=== PATIENT | female | born 1980 | race Two or more races ===

== ENCOUNTER 2020-01-09 15:40 | Outpatient (REF) | payer MEDICAID, OTHER, SELFPAY ==
--- NOTE | 2020-01-09 | XR_ITS ---
EXAMINATION: XR LUMBOSACRAL SPINE WITH OBLIQUES CLINICAL INFORMATION: Low back x1 month COMPARISON: None TECHNIQUE: AP, both oblique, and lateral views of the lumbar spine. Lateral view of the lumbosacral junction. FINDINGS: There is abnormal segmentation of lumbar vertebrae with 6 nonbearing lumbar vertebrae are seen. There is maintained lumbar lordosis. There is minimal dextroscoliosis mid dorsal spine. The vertebral heights, alignment and disc heights are maintained normal. No visible acute fracture, dislocation or lytic process seen. The soft tissues are normal. XR/XR lumbar spine 4V min IMPRESSION: 6 nonbearing lumbar vertebrae. Mild dextroscoliosis mid dorsal spine. No acute fracture, dislocation or lytic process.
== END 2020-01-09 15:41 | disposition home or self-care (01) ==
LOC: HO.XRAY 15:40
PROVIDERS: Visit Provider Nurse Practitioner Family
DX: M54.42 Lumbago with sciatica, left side (principal)
CPT/HCPCS: 72110

== ENCOUNTER 2020-01-13 08:58 | Outpatient (REF) | payer MEDICAID, OTHER, SELFPAY ==
[2020-01-13 12:02] LABS: Hematocrit 40.7 % (37-47); Hemoglobin 13.5 g/dl (12.0-16.0); Mean Corpuscular HGB Conc 33.2 g/dl (31.0-35.0); Mean Corpuscular Hemoglobin 32.2 pg (27.0-33.0); Mean Corpuscular Volume 97.1 fL (80-98); Mean Platelet Volume 9.2 fL (9.4-12.3); Platelet Count 296 X10*3/uL (160-400); Red Blood Count 4.19 X10*6/uL (4.20-5.50); Red Cell Distribution Width 12.5 % (11.0-16.0); White Blood Count 6.2 X10*3/uL (4.8-10.8)
[2020-01-14 09:21] LABS: BV Int Neg Control Negative (Negative); BV Int Pos Control Positive (Positive)
[2020-01-17 16:13] LABS: HPV mRNA E6/E7 Not Detected (Not Detected)
[2020-01-17 18:13] LABS: CT PCR NOT DETECTED (Not Detect.); NG PCR NOT DETECTED (Not Detect.)
== END 2020-01-13 08:59 | disposition home or self-care (01) ==
LOC: HO.LAB 08:58
PROVIDERS: Visit Provider Advanced Practice Midwife
DX: Z01.419 Encounter for gynecological examination (general) (routine) without abnormal findings (principal); N85.2 Hypertrophy of uterus; N89.8 Other specified noninflammatory disorders of vagina; Z86.018 Personal history of other benign neoplasm; Z11.8 Encounter for screening for other infectious and parasitic diseases; Z11.3 Encounter for screening for infections with a predominantly sexual mode of transmission; Z87.59 Personal history of other complications of pregnancy, childbirth and the puerperium
CPT/HCPCS: 36415; 81003; 81025; 85027; 87480; 87491; 87510; 87591; 87624; 87660; 88142; 99212

== ENCOUNTER 2020-01-14 09:15 | Outpatient (REF) | payer MEDICAID, SELFPAY | END 2020-01-14 09:16 | disposition home or self-care (01) | LOC: HO.LAB 09:15 | PROVIDERS: Visit Provider Advanced Practice Midwife | DX: Z13.89 Encounter for screening for other disorder (principal) ==

== ENCOUNTER 2020-05-12 16:38 | Outpatient (REF) | payer MEDICAID, OTHER, SELFPAY ==
--- NOTE | ~2020-05-12 | XR_ITS ---
EXAMINATION: XR KNEE, RIGHT CLINICAL INFORMATION: Right knee pain COMPARISON: Radiographs right knee 03/27/2018 TECHNIQUE: Right knee is imaged in 5 views. FINDINGS: There is no fracture, dislocation, destructive process, or suprapatellar effusion. Hoffa's fat pad appears normal. The medial and lateral knee joint compartments show no interval narrowing or subchondral sclerosis, erosive change, or chondrocalcinosis. Again, there is borderline marginal osteophyte medial femoral condyle. Axial view patella are again shows lateral patellar spur with some borderline lateral patellofemoral joint narrowing. No erosive change or chondrocalcinosis. No lateralization patella. XR/XR knee RT 4V IMPRESSION: 1. Borderline lateral patellofemoral joint narrowing with small lateral patellar spur. 2. No suprapatellar effusion. No erosive changes or chondrocalcinosis.
== END 2020-05-12 16:39 | disposition home or self-care (01) ==
LOC: HO.XRAY 16:38
PROVIDERS: PCP Family Medicine; Visit Provider Emergency Medicine
DX: M25.561 Pain in right knee (principal); M77.9 Enthesopathy, unspecified
CPT/HCPCS: 73564

== ENCOUNTER 2020-05-26 17:30 | Outpatient (REF) | payer MEDICAID, OTHER, SELFPAY ==
--- NOTE | ~2020-05-26 | XR_ITS ---
EXAMINATION: XR CHEST CLINICAL INFORMATION: Chest pain COMPARISON: None TECHNIQUE: 2 views of the chest were obtained. FINDINGS: No significant abnormality is noted involving the heart, lungs, mediastinum, bony thorax or soft tissues. XR/XR chest 2V IMPRESSION: No acute disease.
== END 2020-05-26 17:31 | disposition home or self-care (01) ==
LOC: HO.XRAY 17:30
PROVIDERS: PCP Family Medicine; Visit Provider Family Medicine
DX: R07.9 Chest pain, unspecified (principal)
CPT/HCPCS: 71046

== ENCOUNTER 2021-05-13 16:20 | Outpatient (REF) | payer MEDICAID, OTHER, SELFPAY ==
--- NOTE | ~2021-05-13 | MR_ITS ---
MR BRAIN WITHOUT AND WITH IV CONTRAST CLINICAL INFORMATION: Poliomyelitis is a child now with intermittent episodes. Patient describes left arm weakness, lower extremity pain, and weakness. COMPARISON: None available. TECHNIQUE: Multiplanar, multisequence MRI of the brain was obtained before and after the intravenous administration of 8 mL of Gadavist. FINDINGS: There are mild nonspecific T2 signal changes scattered throughout the supratentorial white matter. No pathologic enhancement intracranially. There is no hydrocephalus, extra-axial surface collection, or herniation. The major flow voids at the skull base are preserved. There is no acute infarct on diffusion-weighted imaging. There is no intracranial hemorrhage on the gradient recalled echo acquisition. The midline structures are normal. The cerebellar tonsils are normally positioned. The cerebellum and brainstem are normal. The craniocervical junction is normal. Osseous marrow signal intensity is homogenous. The visualized soft tissues are unremarkable. MR/MR head/brain wo/w con IMPRESSION: There are mild nonspecific T2 signal changes scattered throughout the supratentorial white matter. No pathologic enhancement intracranially.
== END 2021-05-13 16:21 | disposition home or self-care (01) ==
LOC: HO.MRI 16:20
PROVIDERS: Visit Provider Nurse Practitioner Family
DX: M62.81 Muscle weakness (generalized) (principal)
CPT/HCPCS: 70553; A9585

== ENCOUNTER 2021-07-28 10:56 | Outpatient (REF) | payer MEDICAID, SELFPAY ==
--- NOTE | ~2021-07-28 | MM_ITS ---
EXAMINATION: MM DIAGNOSTIC DIGITAL BREAST TOMOSYNTHESIS, BILATERAL US DIAGNOSTIC ULTRASOUND BREAST, LEFT CLINICAL INFORMATION: Bilateral chronic breast pain. No palpable 1 cm nodule near left nipple on clinical exam. The lifetime risk of breast cancer based on the Tyrer-Cuzick Model is 17%. COMPARISON: Mammography: 09/04/2018, 08/28/2018, ultrasound left breast 09/04/2018. TECHNIQUE: Digital breast tomosynthesis is performed in both the craniocaudal and mediolateral oblique views along with computer-aided detection (CAD). Synthesized 2D images are generated from the tomosynthesis. Additional left spot CC view is performed. Ultrasound left breast is targeted to the periareolar region. Grayscale imaging and color Doppler are performed without and with harmonics. FINDINGS: The breasts are heterogeneously dense, which may obscure small masses (ACR BI-RADS breast composition Category c). Left breast has new smooth macrolobulated nodule 3:00 subareolar position measuring 1.1 x 0.8 x 0.8 cm. The remainder of the breasts show no significant changes from prior studies. Asymmetric density central left breast on initial CC view resolves on additional spot projection. There is no architectural abnormality. No abnormal calcifications. The axilla and skin contours are unremarkable. No skin thickening or coarsening of the Don's ligaments. Ultrasound left breast demonstrates a smooth hypoechoic mass residing just deep to the skin with some radiating hyperechoic internal septations 3:00 retroareolar region measuring 1.2 x 0.6 x 0.9 cm. There is prominent peripheral and internal color flow noted on Doppler. Some scattered tiny cysts are present in the anterior breasts. No architectural abnormality. No skin thickening or edema tracking in soft tissue planes. The mass corresponds to the new lesion on mammography. Results are discussed with the patient at time of visit, using an trim and burr operator. Ultrasound-guided biopsy of the retroareolar left breast mass is recommended. MM/MM tomosynthesis diagnostic BI IMPRESSION: Left: -New smooth hypoechoic mass 3:00 subareolar left breast measuring 1.2 cm. Right: -No mammographic evidence of malignancy. ASSESSMENT: BI-RADS 4: Suspicious RECOMMENDATION: Ultrasound-guided core biopsy left breast mass. This patient's information was entered into a reminder system with a target due date for their next mammogram.
== END 2021-07-28 10:57 | disposition home or self-care (01) ==
LOC: HO.MAMMO 10:56
PROVIDERS: PCP Family Medicine; Visit Provider Family Medicine
DX: N63.42 Unspecified lump in left breast, subareolar (principal)
CPT/HCPCS: 76642; 77062; 77066

== ENCOUNTER 2021-07-30 10:06 | Outpatient (REF) | payer MEDICAID, SELFPAY ==
--- NOTE | ~2021-07-30 | MM_ITS ---
PROCEDURE: US GUIDED BREAST BIOPSY, LEFT CLINICAL INFORMATION: Retroareolar solid mass with internal vascularity 2:00 position COMPARISON: July 28, 2021 and September 04, 2018 PROCEDURAL DETAILS: The details of the procedure, as well as the risks, benefits, and alternatives to the procedure were explained to the patient in detail and all of her questions were answered, after which written informed consent was obtained. Site and side were confirmed. Prior to the procedure, sonography revealed a subcutaneous hypoechoic lobulated lesion with increased vascularity internally which appears to lie within breast parenchyma. This measures approximately 1.2 x 0.5 cm in size.. A time-out was performed, the lesion intended for biopsy was targeted, and the skin of the left breast was then prepped and draped in the usual sterile fashion. Using sonographic guidance, sterile technique, and 1% lidocaine without epinephrine for local anesthesia, multiple automated core biopsies were obtained through the targeted area with a 14G spring loaded Achieve core biopsy device. There was real-time confirmation of appropriate needle passage. Sampling was documented. At the completion of tissue sampling, a single butterfly-shaped metallic clip was deposited at the biopsy site. There was no evidence of immediate complication. SPECIMEN: An appropriate sample was obtained. DIGITAL POST-PROCEDURE MAMMOGRAPHY: Breast density: The tissue is heterogeneously dense which may obscure small masses. BI-RADS version 5, category C. There are no new mammographic findings demonstrated. The postprocedure 2-view direct digital mammogram reveals satisfactory positioning of the biopsy clip. The patient tolerated the procedure well and, after assuring adequate hemostasis, was discharged in good condition after reviewing postbiopsy breast care instructions. Final pathology results are pending. MM/MM diagnostic mammo unilat LT IMPRESSION: 1. No immediate complication from ultrasound-guided percutaneous biopsy left breast. 2. Ultrasound was used to localize and guide marker clip placement. 3. The 2-view direct digital postprocedure mammogram reveals satisfactory positioning of the biopsy clip. 4. Final pathology results are pending. A separate report with final recommendations will be issued once these results are made available.
[2021-07-30] MEDS: Lidocaine HCl 1 % 20 ML VIAL 10 ML SUBCUT (11:42)
== END 2021-07-30 10:07 | disposition home or self-care (01) ==
LOC: HO.MAMMO 10:06
PROVIDERS: PCP Nurse Practitioner Family; Visit Provider Surgery
DX: N63.21 Unspecified lump in the left breast, upper outer quadrant (principal); R92.8 Other abnormal and inconclusive findings on diagnostic imaging of breast
CPT/HCPCS: 19083; 77062; 77065; 88305; 88341; 88342; 99202

== ENCOUNTER 2022-01-19 15:02 | Outpatient (REF) | payer MEDICAID, SELFPAY ==
--- NOTE | ~2022-01-19 | XR_ITS ---
EXAMINATION: XR HAND, LEFT CLINICAL INFORMATION: Hand pain. COMPARISON: None TECHNIQUE: PA, lateral, and oblique views of the left hand. FINDINGS: The bones and soft tissues are normal. No fracture. Alignment is anatomic. Joint spaces are maintained. No erosions or soft tissue calcifications. XR/XR hand LT min 3V IMPRESSION: Unremarkable left hand.
== END 2022-01-19 15:03 | disposition home or self-care (01) ==
LOC: HO.XRAY 15:02
PROVIDERS: PCP Nurse Practitioner; Visit Provider Nurse Practitioner
DX: M79.642 Pain in left hand (principal)
CPT/HCPCS: 73130

== ENCOUNTER 2022-01-20 10:09 | Outpatient (REF) | payer MEDICAID, SELFPAY ==
--- NOTE | ~2022-01-20 | XR_ITS ---
EXAMINATION: XR RIGHT HAND AND RIGHT KNEE CLINICAL INFORMATION: Pain. COMPARISON: None. TECHNIQUE: 3 views of the right hand and 4 views of the right knee. FINDINGS: 3 views of the right hand do not demonstrate any evidence of acute fracture or dislocation. Joint spaces are maintained. No erosive changes are evident. No radiopaque foreign body. Views of the right knee do not demonstrate any evidence of acute fracture or dislocation. Right knee joint spaces are maintained. There is minimal marginal spurring seen about the medial joint space compartment. There is mild spurring about the undersurface of the patella, more prominent laterally. XR/XR knee RT 4V IMPRESSION: No significant right hand abnormality appreciated. Mild patellofemoral joint degenerative change. No fracture or effusion.
--- NOTE | ~2022-01-20 | XR_ITS ---
EXAMINATION: XR RIGHT HAND AND RIGHT KNEE CLINICAL INFORMATION: Pain. COMPARISON: None. TECHNIQUE: 3 views of the right hand and 4 views of the right knee. FINDINGS: 3 views of the right hand do not demonstrate any evidence of acute fracture or dislocation. Joint spaces are maintained. No erosive changes are evident. No radiopaque foreign body. Views of the right knee do not demonstrate any evidence of acute fracture or dislocation. Right knee joint spaces are maintained. There is minimal marginal spurring seen about the medial joint space compartment. There is mild spurring about the undersurface of the patella, more prominent laterally. XR/XR hand RT min 3V IMPRESSION: No significant right hand abnormality appreciated. Mild patellofemoral joint degenerative change. No fracture or effusion.
== END 2022-01-20 10:10 | disposition home or self-care (01) ==
LOC: HO.XRAY 10:09
PROVIDERS: PCP Nurse Practitioner; Visit Provider Nurse Practitioner
DX: M25.561 Pain in right knee (principal); M79.641 Pain in right hand
CPT/HCPCS: 73130; 73564

== ENCOUNTER 2022-08-10 11:26 | Outpatient (REF) | payer MEDICAID, SELFPAY ==
--- NOTE | ~2022-08-10 | XR_ITS ---
EXAMINATION: XR FOOT, RIGHT CLINICAL INFORMATION: Sole of foot pain of greater than one year's duration. COMPARISON: None available. TECHNIQUE: AP, lateral, and oblique views of the right foot. FINDINGS: Bony alignment and mineralization are normal. No fracture, dislocation or right joint effusion is seen. Boehler's angle is normal. There are small posterior and minimal plantar calcaneal spurs. No focal soft tissue swelling, gas or foreign body is seen. XR/XR foot RT min 3V IMPRESSION: 1. No fracture, dislocation or right ankle joint effusion is seen. 2. There are calcaneal spurs. EXAMINATION: XR FOOT, LEFT CLINICAL INFORMATION: Sole of foot pain of greater than one year's duration. COMPARISON: Radiographs dated 11/20/2017. TECHNIQUE: AP, lateral, and oblique views of the left foot. FINDINGS: Bony alignment and mineralization are normal. No fracture, dislocation or left ankle joint effusion is seen. Boehler's angle is normal. There are small to moderate posterior and plantar calcaneal spurs. There are degenerative changes of the dorsal midfoot. No focal soft tissue swelling, gas or foreign body is seen. IMPRESSION: 1. No fracture, dislocation or left ankle joint effusion is seen. 2. There are calcaneal spurs.
--- NOTE | ~2022-08-10 | XR_ITS ---
EXAMINATION: XR FOOT, RIGHT CLINICAL INFORMATION: Sole of foot pain of greater than one year's duration. COMPARISON: None available. TECHNIQUE: AP, lateral, and oblique views of the right foot. FINDINGS: Bony alignment and mineralization are normal. No fracture, dislocation or right joint effusion is seen. Boehler's angle is normal. There are small posterior and minimal plantar calcaneal spurs. No focal soft tissue swelling, gas or foreign body is seen. XR/XR foot LT min 3V IMPRESSION: 1. No fracture, dislocation or right ankle joint effusion is seen. 2. There are calcaneal spurs. EXAMINATION: XR FOOT, LEFT CLINICAL INFORMATION: Sole of foot pain of greater than one year's duration. COMPARISON: Radiographs dated 11/20/2017. TECHNIQUE: AP, lateral, and oblique views of the left foot. FINDINGS: Bony alignment and mineralization are normal. No fracture, dislocation or left ankle joint effusion is seen. Boehler's angle is normal. There are small to moderate posterior and plantar calcaneal spurs. There are degenerative changes of the dorsal midfoot. No focal soft tissue swelling, gas or foreign body is seen. IMPRESSION: 1. No fracture, dislocation or left ankle joint effusion is seen. 2. There are calcaneal spurs.
== END 2022-08-10 11:27 | disposition home or self-care (01) ==
LOC: HO.HHCX 11:26
PROVIDERS: Visit Provider Registered Nurse
DX: M72.2 Plantar fascial fibromatosis (principal)
CPT/HCPCS: 73630

== ENCOUNTER 2022-08-16 09:21 | Outpatient (REF) | payer MEDICAID, SELFPAY ==
[2022-08-16 13:06] LABS: Alanine Aminotransferase 16 U/L (0-31); Albumin Level 3.8 g/dL (3.5-5.0); Alkaline Phosphatase 52 U/L (39-117); Anion Gap 13 (12-20); Aspartate Amino Transferase 14 U/L (5-31); Bilirubin Total 0.3 mg/dL (0.0-1.0); Blood Urea Nitrogen 12 mg/dL (9-16); Calcium 9.1 mg/dL (8.4-10.2); Carbon Dioxide 21 mmol/L (22-29); Chloride 108 mmol/L (96-108); Estimated Glomerular Filt Rate > 60; Glucose Random 80 mg/dL (60-115); Potassium 3.7 mmol/L (3.3-5.1); Sodium 138 mmol/L (135-145); Total Protein 7.3 g/dL (6.5-8.0)
[2022-08-16 13:24] LABS: TSH reflex Free T4 1.25 uIU/mL (0.32-4.0)
[2022-08-16 13:31] LABS: Folate 13.9 ng/mL (> or = 4.0); Vitamin B12 693 pg/mL (200-900)
[2022-08-17 02:25] LABS: Syphilis Screen Nonreactive (Nonreactive)
== END 2022-08-16 09:22 | disposition home or self-care (01) ==
LOC: HO.LAB 09:21
PROVIDERS: PCP Registered Nurse; Visit Provider Registered Nurse
DX: R41.3 Other amnesia (principal)
CPT/HCPCS: 36415; 80053; 82607; 82746; 84443; 86592; 86780

== ENCOUNTER 2022-08-17 14:50 | Outpatient (REF) | payer MEDICAID, SELFPAY ==
--- NOTE | ~2022-08-17 | MM_ITS ---
EXAMINATION: MM SCREENING DIGITAL BREAST TOMOSYNTHESIS, BILATERAL CLINICAL INFORMATION: Screening. Asymptomatic. The lifetime risk of breast cancer based on the Tyrer-Cuzick Model is 17%. COMPARISON: Mammography: This study is compared with prior exams dating back to 2019. TECHNIQUE: Digital breast tomosynthesis is performed in both the craniocaudal and mediolateral oblique views along with computer-aided detection (CAD). Synthesized 2D images are generated from the tomosynthesis. FINDINGS: The breasts are heterogeneously dense, which may obscure small masses (ACR BI-RADS breast composition Category c). There are no significant masses, abnormal calcifications, or other abnormalities. MM/MM tomosynthesis screening BI IMPRESSION: No mammographic evidence of malignancy. ASSESSMENT: BI-RADS BI-RADS 1 - Negative RECOMMENDATION: Routine annual mammography screening. 1 year F/U This examination should not preclude the clinical evaluation of a suspicious palpable abnormality. This patient's information was entered into a reminder system with a target due date for their next mammogram.
== END 2022-08-17 14:51 | disposition home or self-care (01) ==
LOC: HO.MAMMO 14:50
PROVIDERS: PCP Registered Nurse; Visit Provider Registered Nurse
DX: Z12.31 Encounter for screening mammogram for malignant neoplasm of breast (principal)
CPT/HCPCS: 77063; 77067

== ENCOUNTER → 2022-08-17 15:00 | Outpatient (BNV) | payer MEDICAID, SELFPAY | PROVIDERS: PCP Registered Nurse; Visit Provider Radiology Diagnostic Radiology | DX: Z12.31 Encounter for screening mammogram for malignant neoplasm of breast (principal) | CPT/HCPCS: 77063; 77067 ==

== ENCOUNTER 2023-04-07 09:17 | Outpatient (REF) | payer MEDICAID, SELFPAY ==
[2023-04-07 11:23] LABS: MANUAL DIFF FLAG NO
[2023-04-07 11:42] LABS: Basophils Percent Auto 0.9 % (0-2); Eosinophils Absolute Auto 0.1 X10*3/uL (0.0-0.4); Eosinophils Percent Auto 2.2 % (0-4); Hematocrit 39.2 % (37.0-47.0); Hemoglobin 13.1 g/dl (12.0-16.0); Imm Gran Abs Auto 0.01 X10*3/uL (0.00-0.03); Imm Gran Pct Auto 0.2 % (0.0-0.4); Lymphocytes Absolute Auto 1.5 X10*3/uL (1.2-4.9); Mean Corpuscular HGB Conc 33.4 g/dl (31.0-35.0); Mean Corpuscular Hemoglobin 32.3 pg (27.0-33.0); Mean Corpuscular Volume 96.8 fL (80.0-98.0); Mean Platelet Volume 9.9 fL (9.4-12.3); Monocytes Absolute Auto 0.4 X10*3/uL (0.1-1.2); Monocytes Percent Auto 8.7 % (2-11); Neutrophils Absolute Auto 2.5 x10*3/uL (2.0-8.3); Platelet Count 282 X10*3/uL (160-400); Red Blood Count 4.05 X10*6/uL (4.20-5.50); Red Cell Distribution Width 12.3 % (11.0-16.0); White Blood Count 4.5 X10*3/uL (4.8-10.8)
[2023-04-07 11:47] LABS: INTERNATIONAL NORM RATIO 0.9 (0.9-1.1); Prothrombin Time 11.3 SEC (11.1-13.3)
[2023-04-07 11:49] LABS: Partial Thromboplastin Time 25.9 SEC (26.0-36.8)
[2023-04-07 11:54] LABS: Alkaline Phosphatase 62 U/L (39-117); Magnesium 1.9 mg/dL (1.6-2.6)
== END 2023-04-07 09:18 | disposition home or self-care (01) ==
LOC: HO.HHCL 09:17
PROVIDERS: Visit Provider General Practice
DX: M89.9 Disorder of bone, unspecified (principal)
CPT/HCPCS: 36415; 83735; 84075; 85025; 85610; 85730

== ENCOUNTER 2023-07-12 10:09 | Outpatient (REF) | payer MEDICAID, SELFPAY ==
[2023-07-12 11:48] LABS: MANUAL DIFF FLAG NO
[2023-07-12 11:58] LABS: Basophils Percent Auto 0.6 % (0-2); Eosinophils Absolute Auto 0.1 X10*3/uL (0.0-0.4); Eosinophils Percent Auto 2.6 % (0-4); Hematocrit 37.9 % (37.0-47.0); Hemoglobin 12.7 g/dl (12.0-16.0); Lymphocytes Absolute Auto 1.6 X10*3/uL (1.2-4.9); Lymphocytes Percent Auto 29.6 % (20-40); Mean Corpuscular HGB Conc 33.5 g/dl (31.0-35.0); Mean Corpuscular Hemoglobin 32.6 pg (27.0-33.0); Mean Corpuscular Volume 97.4 fL (80.0-98.0); Mean Platelet Volume 9.8 fL (9.4-12.3); Monocytes Absolute Auto 0.5 X10*3/uL (0.1-1.2); Monocytes Percent Auto 9.4 % (2-11); Neutrophils Absolute Auto 3.1 x10*3/uL (2.0-8.3); Neutrophils Percent Auto 57.8 % (45-73); Platelet Count 254 X10*3/uL (160-400); Red Blood Count 3.89 X10*6/uL (4.20-5.50); White Blood Count 5.3 X10*3/uL (4.8-10.8)
[2023-07-12 12:27] LABS: Anion Gap 12 (12-20); Blood Urea Nitrogen 12 mg/dL (9-16); C Reactive Protein 0.27 mg/dL (< or = 0.50); Calcium 9.1 mg/dL (8.4-10.2); Carbon Dioxide 25 mmol/L (22-29); Chloride 107 mmol/L (96-108); Estimated Glomerular Filt Rate > 60; Glucose Random 87 mg/dL (60-115); Sodium 140 mmol/L (135-145)
[2023-07-12 12:40] LABS: Erythrocyte Sedimentation Rate 10 MM/HR (0-20)
== END 2023-07-12 10:10 | disposition home or self-care (01) ==
LOC: HO.HHCL 10:09
PROVIDERS: Visit Provider Family Medicine
DX: R53.81 Other malaise (principal); R68.89 Other general symptoms and signs
CPT/HCPCS: 36415; 80048; 85025; 85652; 86140

== ENCOUNTER 2023-08-07 18:39 | Outpatient (REF) | payer MEDICAID, SELFPAY ==
[2023-08-08 11:03] LABS: Bacterial Vaginosis PCR NEGATIVE (Negative); Candida Group PCR NOT DETECTED (Not Detect); Candida glab krusei PCR NOT DETECTED (Not Detect); Trichomonas vaginalis PCR NOT DETECTED (Not Detect)
[2023-08-08 11:52] LABS: CT PCR NOT DETECTED (Not Detect.); NG PCR NOT DETECTED (Not Detect.)
== END 2023-08-07 18:40 | disposition home or self-care (01) ==
LOC: HO.HHCLNP 18:39
PROVIDERS: Visit Provider General Practice
DX: Z12.4 Encounter for screening for malignant neoplasm of cervix (principal)
CPT/HCPCS: 0352U; 87491; 87591; 87625; 88175

== ENCOUNTER 2023-08-23 14:44 | Outpatient (REF) | payer MEDICAID, SELFPAY | END 2023-08-23 14:45 | disposition home or self-care (01) | LOC: HO.MAMMO 14:44 | PROVIDERS: PCP General Practice; Visit Provider General Practice | DX: Z12.31 Encounter for screening mammogram for malignant neoplasm of breast (principal) | CPT/HCPCS: 77063; 77067 ==

== ENCOUNTER → 2023-08-23 15:00 | Outpatient (BNV) | payer MEDICAID, SELFPAY | PROVIDERS: PCP General Practice; Visit Provider Radiology Diagnostic Radiology | DX: Z12.31 Encounter for screening mammogram for malignant neoplasm of breast (principal) | CPT/HCPCS: 77063; 77067 ==

== ENCOUNTER 2023-08-25 11:37 | Outpatient (REF) | payer MEDICAID, SELFPAY ==
[2023-08-25 15:21] LABS: Estimated Average Glucose 103 mg/dL; Hemoglobin A1c % 5.2 % (<6.0)
[2023-08-25 21:35] LABS: Cholesterol 141 mg/dL (<200); HDL Cholesterol 53 mg/dL (>40); LDL Cholesterol Calculated 78 mg/dL (<100); Triglycerides 51 mg/dL (<150)
[2023-08-26 03:42] LABS: HIV AB/AG Nonreactive (Nonreactive); HIV Num 1 0.05 S/CO (0.00-0.99); ~HepC Num1 0.33 S/CO (0.00-0.79); ~Hepatitis C Antibody Nonreactive (Nonreactive)
== END 2023-08-25 11:38 | disposition home or self-care (01) ==
LOC: HO.HHCL 11:37
PROVIDERS: Visit Provider General Practice
DX: Z00.01 Encounter for general adult medical examination with abnormal findings (principal)
CPT/HCPCS: 36415; 80061; 83036; 86803; 87389

== ENCOUNTER 2023-09-18 08:49 | Outpatient (AMB) | payer MEDICAID, SELFPAY ==
--- NOTE | 2023-09-18 08:59 | MHC.OFFVIS ---
Vital Signs 09/18/23 09:04 Height 5 ft Weight 178 lb BMI 34.8 BP 120/70 Intake Visit Reasons: Chronic Pelvic pain/referral Principal Accounts Clerk Required: Yes Principal Accounts Clerk Language: Insurance Processor Services: Principal Accounts Clerk Present (in person) Principal Accounts Clerk Name: Maris THORNTON Information Interpreted: non-clinical & clinical Gyroscopic Engineering Technician: Gyroscopic Engineering Technician Present (Maris THORNTON) Accompanied by: Self / Same As Patient Allergies No Known Allergies Allergy (Verified 09/18/23 09:06) Is last menstrual period known: Yes HPI Comments Details: The patient is presenting c/o inability to conceive over the last two years in spite of frequent adequate intercourse. Her periods are regular and non-painful, no other complaints. FOR[facility]LY [facility] Medical History Arthritis, rheumatoid Polio Surgical History History of surgery on lower extremity Family History Mother Colon cancer Father Prostate cancer Mother Hyperlipemia Father Diabetes Maternal Aunt Breast cancer Social History Household Members: Spouse Household Members Other:: son Housing: Apartment Alcohol intake: current Alcohol intake frequency: holidays/special occasions only Patient Tobacco Use Status: Never used Tobacco Current occupational status: unemployed Sexually active: Yes Gender identity: Female Female Reproductive History Menstrual Age of Menarche: 9 Date of last pap smear: 02/04/20 Review of Systems Const All systems reviewed & are unremarkable except as noted in HPI and below Reports as per HPI and Reports no additional complaints GI Reports no additional complaints Reports no additional complaints Physical Exam Vital Signs: Last Vital Signs BP 120/70 09/18/23 09:04 BMI result Body Mass Index 34.8 Results AMB Test Urine AMB Test Urine Negative Last Edit by Maris Wilkerson CMA on 09/18/23 09:14 AMB Urinalysis Dipstick UR Leukocytes Negative Last Edit by Maris Wilkerson CMA on 09/18/23 09:16 UR Nitrite Negative Last Edit by Maris Wilkerson CMA on 09/18/23 09:16 UR Urobilinogen Normal Last Edit by Maris Wilkerson CMA on 09/18/23 09:16 UR Protein Trace Last Edit by Maris Wilkerson CMA on 09/18/23 09:16 UR Ph 6.0 Last Edit by Maris Wilkerson CMA on 09/18/23 09:16 UR Blood Negative Last Edit by Maris Wilkerson CMA on 09/18/23 09:16 UR Specific Ledbetter 1.025 Last Edit by Maris Wilkerson CMA on 09/18/23 09:16 UR Ketone Negative Last Edit by Maris Wilkerson CMA on 09/18/23 09:16 UR Bilirubin Negative Last Edit by Maris Wilkerson CMA on 09/18/23 09:16 UR Glucose Negative Last Edit by Maris Wilkerson CMA on 09/18/23 09:16 Results Reviewed Results Reviewed: Laboratory Last Values Urine pH (Clinic) 6.0 09/18/23 09:13 Specific Ledbetter (Clinic) 1.025 09/18/23 09:13 Ur Protein (Clinic) Trace 09/18/23 09:13 Ur Ketones (Clinic) Negative 09/18/23 09:13 Urine Blood (Clinic) Negative 09/18/23 09:13 Urine Nitrite Negative 09/18/23 09:13 Urine Bilirubin (Clinic) Negative 09/18/23 09:13 Urobilinogen (Clinic) Normal 09/18/23 09:13 Leukocyte Esterase (Clinic) Negative 09/18/23 09:13 Urine Glucose (Clinic) Negative 09/18/23 09:13 Tst Clinic Negative 09/18/23 09:13 Assessment & Plan Assessment & Plan (1) Infertility, female: Code(s): N97.9 - Female infertility, unspecified Category: Medical Plan: Discussed with the patient different cause of infertility female/male factors, chance of different age group. will refer to [facility]/infertility. All questions answered, the patient verbalized understanding. Instructed the patient to call our office back in case a referral appointment is not scheduled, missed or canceled so that we will assist on rescheduling another appointment, the patient verbalized understanding agreed with the plan. Orders: Orders AMB Urinalysis Dipstick Today R10.2 - Pelvic and perineal pain AMB HCG Urine Test Today Z32.02 - Encounter for test, result negative Referrals Infertility Reproductive Referral (female) N97.9 - Female infertility, unspecified Coding Level of Care Code New Pt Level 3 (11150) Diagnoses Infertility, female N97.9
[2023-09-18 09:04] VITALS: BP 120/70; BMI 34.8
== END 2023-09-18 09:37 | disposition home or self-care (01) ==
LOC: HO.HWS 08:49
PROVIDERS: PCP General Practice; Visit Provider Obstetrics & Gynecology
DX: N97.9 Female infertility, unspecified (principal); Z32.02 Encounter for pregnancy test, result negative; R10.2 Pelvic and perineal pain
CPT/HCPCS: 99203

== ENCOUNTER → 2023-09-18 08:49 | Outpatient (BNVA) | payer MEDICAID, SELFPAY | PROVIDERS: PCP General Practice; Visit Provider Obstetrics & Gynecology | DX: N97.9 Female infertility, unspecified (principal) | CPT/HCPCS: 81002; 81025; 99202 ==

== ENCOUNTER 2023-09-20 10:03 | Outpatient (REF) | payer MEDICAID, SELFPAY ==
--- NOTE | ~2023-09-20 | XR_ITS ---
EXAMINATION: XR LUMBOSACRAL SPINE CLINICAL INFORMATION: Low back pain. COMPARISON: 01/09/2020 TECHNIQUE: Three views of the lumbosacral spine. FINDINGS: Transitional lumbosacral anatomy. There is rotatory dextroscoliosis of the lumbar spine. Normal sagittal alignment. Vertebral body heights are maintained. There is moderate intervertebral disc space narrowing at L3-L4 with marginal osteophytes. Sacroiliac joints are intact. XR/XR lumbar spine 2-3V IMPRESSION: Moderate degenerative disc disease L3-L4.
== END 2023-09-20 10:04 | disposition home or self-care (01) ==
LOC: HO.HHCX 10:03
PROVIDERS: Visit Provider Family Medicine
DX: M54.50 Low back pain, unspecified (principal)
CPT/HCPCS: 72100

== ENCOUNTER 2024-04-03 11:31 | Outpatient (REF) | payer MEDICAID, SELFPAY ==
--- NOTE | ~2024-04-03 | XR_ITS ---
EXAMINATION: XR SHOULDER 2 OR MORE VIEWS RIGHT HISTORY: right anterior shoulder pain COMPARISON: There are no prior studies available for comparison. FINDINGS: Four views of the right shoulder are submitted. Osseous mineralization is normal. There is no fracture or dislocation. The glenohumeral and acromioclavicular joint spaces are preserved. The soft tissues are unremarkable. XR/XR shoulder RT min 2V IMPRESSION: Unremarkable examination of the right shoulder. Electronically signed by: Sergei Knapp MD 04/03/2024 12:02 PM ABIMAEL NUNEZ
--- OUTSIDE RECORDS SUMMARY | 2024-04-03 14:29 | XMS_ITS | Encounter Summary ---
Author Organization [facility] Address [address] [facility] 7t [place] [address] Care Team Providers Care Preschool Adviser Name Role Phone Marlene Witt MD Primary Care Provider [phone] Reason for Referral * Consultation (Routine) - Pending Review Specialty Diagnoses / Procedures Referred By Maliha jean Referred To Contact Physical Therapy Diagnoses Acute pain of right shoulder Ness Hernandez MD [address] [place] [address] Phone: tel: fax: Referral ID Status Reason Start Date Expiration Date Visits Requested Visits Authorized [id number] Pending Review Specialty Services Required 04/03/2024 04/03/2025 1 1 Reason for Visit * Reason Comments Arm Pain Encounter Details Date Type Department Care Team ([facility] st Contact Info) Description 04/03/2024 10:20 AM EST Office Visit [facility] [address] [place], [place] [phone] Acute pain of right shoulder (Primary Dx) Social History Tobacco Use Types Packs/Day Years Used Date Smoking Tobacco: Never Passive Smoke Exposure: Never Smokeless Tobacco: Never Alcohol Use Standard Drinks/Week Comments Never 0 (1 standard drink = 0.6 oz pur e alcohol) Depression Answer Date Recorded Patient Health Questionnaire-9 Score 0 04/06/2023 Patient Health Questionnaire-9 Score 0 04/06/2023 Last PHQ-9: Questionnaire Data Not on file 0 04/06/2023 Housing Stability Answer Date Recorded What is your housing situation today? I have anna draper 04/06/[address] you li ve. Do you have problems with any of the following? None of the above 04/06/2023 Food Insecurity Answer Date Recorded Within the past 12 months, y ou worried that your food would run out before you got money to buy more: Never True 04/06/2023 Within the past 12 months,th e food you bought just didn't last and you didn't have enough money to get more: Never True Transportation Answer Date Recorded In the past 12 months, has l ack of transportation kept you from medical appts, meetings, work or from getting things needed for daily living? No 02/08/2024 Utilities Answer Date Recorded In the past 12 months, has t he electric, gas, oil or water company threatened to shut off services in your home? No 04/06/2023 Depression Answer Date Recorded Patient Health Questionnaire-2 Score 0 04/06/2023 Internet Access Answer Date Recorded Internet Access Q1 Yes 02/08/2024 Internet Access Q2 Not on file 02/08/2024 Comments No Sex and Gender Information Value Date Recorded Sex Assigned at Female 12/06/2021 10:27 AM EDT Legal Sex Female 10:27 AM EDT Gender Identity Female 12/06/2021 10:27 AM EDT Sexual Orientation Straight 12/06/2021 10 :27 AM EDT documented as of this encounter Last Filed Vital Signs Vital Sign Reading Time Taken Comments Blood Pressure 114/70 04/03/2024 10:31 AM EST Pulse 77 04/03/2024 10:31 AM EST Temperature 36.7 ??C (98.1 ??F) 04/03/2024 10:[address] Respiratory Rate 16 04/03/2024 10:31 AM EST Oxygen Saturation 99% 04/03/2024 10:31 AM EST Inhaled Oxygen Concentration - - Weight 82.6 kg (182 lb) 04/03/2024 10:31 AM EST Height - - Body Mass Index 35.54 02/14/2024 3:10 PM EST documented in this encounter Miscellaneous Notes * Assessment & Plan Note - Leonid Tay - 04/03/2024 11:12 AM ESTAssociated Problem(s): Acute pain of right shoulder Likely inflammatory. Has rheumatology follow-up. -prescribed prednisone 20 mg, BID for 5 days. -referred to PT -ordered XR of right shoulder documented in this encounter Plan of Treatment Upcoming Encounters Date Type Department Care Team (Late st Contact Info) Description 08/28/2024 10:00 AM EDT Office Visit [facility] [address] [facility] [place] [address] Shelly Becerra [address] [place] [address] Scheduled Referrals Name Type Priority Associated Diagnoses Orde r Schedule Referral to Physical Therapy Outpatient Referral Routine Acute pain of right shoulder Expected: 04/03/2024 (Approximate), Expires: 04/03/2025 documented as of this encounter Procedures Procedure Name Priority Date/Time Associated Diagnosis Comments XR SHOULDER 2+ VIEWS RIGHT Routine 04/03/2024 11:32 AM EST Acute pain of right shoulder documented in this encounter Results * XR Shoulder 2+ Views Right (04/03/2024 11:32 AM EST) Anatomical Region Laterality Modality Upper Extremities, Shoulder Right Radi ographic Imaging 04/03/2024 11:3 2 AM EST Narrative 04/03/2024 12:05 PM EST ?[facility] ?[address]. ?[place] [id number] ?XRay Report ? Signed ? Patient: Glenn De Ling,Kiera ?MR# ?? : [id number] ? : 1980 ?Acct:[id number] ? Age/Sex: 43 / F ?ADM Date: 02/26/25 ? Loc: HO.HHCX ? Attending Dr: Ness Hernandez MD ? Ordering Physician: Ness Hernandez MD ?? Date of Service: 04/03/24 ?? Procedure(s): XR shoulder RT min 2V ?? Accession Number(s): [id number] ? cc: Ness Hernandez MD ? EXAMINATION: ??XR SHOULDER 2 OR MORE VIEWS RIGHT ? HISTORY: right anterior shoulder pain ? COMPARISON: There are no prior studies available for comparison. ? FINDINGS: ? Four views of the right shoulder are submitted. ??Osseous mineralization ?? is normal. ??There is no fracture or dislocation. ??The glenohumeral and ?? acromioclavicular joint spaces are preserved. ??The soft tissues are ?? unremarkable. ? XR/XR shoulder RT min 2V ?? IMPRESSION: ? Unremarkable examination of the right shoulder. ? Electronically signed by: ??Sergei Knapp MD ??04/03/2024 12:02 PM EST ? Dictated By: ?Sergei Knapp MD ? Signed By: ?<Electronically signed by Sergei Knapp MD in OV> ?04/03/24 1202 ? DD/ 1132 ? TD/TT: 04/03/24 1148 ? Tank Truck Milk Receiver: ? Procedure Note Caridad, Image - 04/03/[address] [address] XRay Report Signed Patient: Kiera MyersMR# : [id number] : 1980Acct:[id number] Age/Sex: 43 / FADM Date: 04/03/24 Loc: HO.HHCX Attending Dr: Ness Hernandez MD Ordering Physician: Ness Hernandez MD Date of Service: 04/03/24 Procedure(s): XR shoulder RT min 2V Accession Number(s): [id number] cc: Ness Hernandez MD EXAMINATION: XR SHOULDER 2 OR MORE VIEWS RIGHT HISTORY: right anterior shoulder pain COMPARISON: There are no prior studies available for comparison. FINDINGS: Four views of the right shoulder are submitted. Osseous mineralization is normal. There is no fracture or dislocation. The glenohumeral and acromioclavicular joint spaces are preserved. The soft tissues are unremarkable. XR/XR shoulder RT min 2V IMPRESSION: Unremarkable examination of the right shoulder. Electronically signed by: Sergei Knapp MD 04/03/2024 12:02 PM [facility] Dictated By: Sergei Knapp MD Signed By: <Electronically signed by Sergei Knapp MD in OV> 04/03/24 1202 DD/ 1132 TD/TT: 04/03/24 1148 [employer] Receiver: Ness Hernandez MD IMG XR PROCEDURES Final Re sult documented in this encounter Visit Diagnoses Diagnosis Acute pain of right shoulder- Primary documented in this encounter Additional Health Concerns Assessment Noted Time PHQ-9 Depression Total Score: 0 04/06/19 24 3:00 PM EST documented as of this encounter Care Teams Preschool Adviser Relationship Specialty Start Date End Date Marlene Witt MD [address] [place] [address] PCP - General Family Medicine 11/11/22 documented as of this encounter
--- OUTSIDE RECORDS SUMMARY | 2024-04-03 14:29 | XMS_ITS | Encounter Summary ---
Author Organization [facility] Address [address] [place] [address] [address] [place] [address] Care Team Providers Care Rn Med Surg Name Role Phone Angie Abdul Primary Care Provider [phone] Marlene Witt MD Primary Care Provider [phone] Encounter Details Date Type Department Care Team (Latest Contact Info) Description 04/30/2018 Abstract [facility] CONVERSIONS Dental, Provider, DDS Social History Tobacco Use Types Packs/Day Years Used Date Smoking Tobacco: Never Assessed Comments Unknown Sex and Gender Information Value Date Recorded Sex Assigned at Female 12/06/2021 10:27 AM EDT Legal Sex Female 10:27 AM EDT Gender Identity Female 12/06/2021 10:27 AM EDT Sexual Orientation Straight 12/06/2021 10 :27 AM EDT documented as of this encounter Plan of Treatment Upcoming Encounters Date Type Department Care Team (Late st Contact Info) Description 08/28/2024 10:00 AM EDT Office Visit [facility] [address] [place] [address] Mariam, Shelly [address] [place] [address] documented as of this encounter Visit Diagnoses Not on filedocumented in this encounter Care Teams Rn Med Surg Relationship Specialty Start Date End Date Angie Abdul FNP PCP - General Family Medicine 10/02/21 11/10/22 Marlene Witt MD [address] [place] [address] PCP - General Family Medicine 11/11/22 documented as of this encounter
--- OUTSIDE RECORDS SUMMARY | 2024-04-03 14:29 | XMS_ITS | Encounter Summary ---
Author Organization [facility] Address [address] [facility] 7 [place] [address] Care Team Providers Care Mails Supervisor Name Role Phone Angie Abdul Primary Care Provider [phone] Marlene Witt MD Primary Care Provider [phone] Reason for Visit * Reason Onset Date Comments Appointment 10/06/2022 Encounter Details Date Type Department Care Team (Late st Contact Info) Description 10/06/2022 Telephone [facility] [address] [place], [place] [phone] Mariam, Shelly [address] [place] [address] Appointment Social History Tobacco Use Types Packs/Day Years Used Date Smoking Tobacco: Never Passive Smoke Exposure: Never Smokeless Tobacco: Never Alcohol Use Standard Drinks/Week Comments Never 0 (1 standard drink = 0.6 oz pur e alcohol) Depression Answer Date Recorded Patient Health Questionnaire-9 Score 10 07/06/2022 Depression Answer Date Recorded Patient Health Questionnaire-2 Score 2 07/06/2022 Comments No Sex and Gender Information Value Date Recorded Sex Assigned at Female 12/06/2021 10:27 AM EDT Legal Sex Female 10:27 AM EDT Gender Identity Female 12/06/2021 10:27 AM EDT Sexual Orientation Straight 12/06/2021 10 :27 AM EDT documented as of this encounter Miscellaneous Notes * Telephone Encounter - Zoe Pathak - 10/06/2022 12:03 PM EDT Patient called in checking in on status of cleaning and exam. Requested 06/2022. She is concerned because she is feeling off and on pain that feels like a cavity. documented in this encounter Plan of Treatment Upcoming Encounters Date Type Department Care Team (Late st Contact Info) Description 08/28/2024 10:00 AM EDT Office Visit [facility] [address] [place], [place] [phone] Mariam, Shelly [address] [place] [address] documented as of this encounter Visit Diagnoses Not on filedocumented in this encounter Additional Health Concerns Assessment Noted Time PHQ-9 Depression Total Score: 10 023 11:28 AM EDT documented as of this encounter Care Teams Mails Supervisor Relationship Specialty Start Date End Date Angie Abdul FNP PCP - General Family Medicine 10/02/21 11/10/22 Marlene Witt MD [address] [place] [address] PCP - General Family Medicine 11/11/22 documented as of this encounter
--- OUTSIDE RECORDS SUMMARY | 2024-04-03 14:29 | XMS_ITS | Clinical Summary ---
Author Organization [facility] Address [address] [place] [address] Care Team Providers Care Network Engineer Name Role Phone Unavailable Primary Care Provider Unavailabl e Social History Tobacco Use Types Packs/Day Years Used Date Smoking Tobacco: Never Assessed Comments Unknown Sex and Gender Information Value Date Recorded Sex Assigned at Not on file Legal Sex Female 1:11 AM EST Gender Identity Not on file Sexual Orientation Not on file Plan of Treatment Health Maintenance Due Date Last Done Comments Breast Cancer Screening 1980 DTaP,Tdap,and Td Vaccines (1 - Tdap) 1997 Hepatitis B Vaccines (1 of 3 - 19+ 3-dose series) 1997 Cervical Cancer Screening: P ap Smear 08/17/1999 Colorectal Cancer Screening: Colonoscopy 01/09/2022 Depression Screening 01/09/2022 HIV Screening 01/09/2022 Hepatitis C Screening 01/09/2022 Social Influencers of Health Screening 01/09/2022 COVID-19 Vaccine (2023-2 5 season) 2023 Influenza Vaccine (#1) 2023 HIB Vaccines Aged Out No longer eligi ble based on patient's age to complete this topic HPV Vaccines Aged Out No longer eligi ble based on patient's age to complete this topic Hepatitis A Vaccines Aged Out No long er eligible based on patient's age to complete this topic IPV Vaccines Aged Out No longer eligi ble based on patient's age to complete this topic MMR Vaccines Aged Out No longer eligi ble based on patient's age to complete this topic Meningococcal ACWY Vaccine Aged Out N o longer eligible based on patient's age to complete this topic Meningococcal B Vacine Aged Out No lo nger eligible based on patient's age to complete this topic Pneumococcal Vaccine: Pediat rics (0 to 5 Years) and At-Risk Patients (6 to 64 Years) Aged Out No longer eligible b ased on patient's age to complete this topic RSV Immunization Patients Un kartik 20 months Aged Out No longer eligible b ased on patient's age to complete this topic Varicella Vaccines Aged Out No longer eligible based on patient's age to complete this topic
--- OUTSIDE RECORDS SUMMARY | 2024-04-03 14:29 | XMS_ITS | Encounter Summary ---
Author Organization [facility] Address [address] [facility] [address] [place] [address] Care Team Providers Care Liquid Compounder Name Role Phone Marlene Witt MD Primary Care Provider [phone] Reason for Visit * Reason Comments Med Refill Encounter Details Date Type Department Care Team ([facility] st Contact Info) Description 09/25/[address] [facility] [address] [place], [place] [phone] Marlene Witt MD [address] [place] [address] Social History Tobacco Use Types Packs/Day Years [...] from getting things needed for daily living? Yes, it has kept me from medical appointments or getting medications. 04/06/2023 Utilities Answer Date Recorded In the past 12 months, has t he electric, gas, oil or water company threatened to shut off services in your home? No 04/06/2023 Depression Answer Date Recorded Patient Health Questionnaire-2 Score 0 04/06/2023 Comments No Sex and Gender Information Value [...] Description 08/28/2024 10:00 AM EDT Office Visit [facility] [address] [place] [address] MariamQuintinShelly [address] [place] [address] documented as of this encounter Visit Diagnoses Not on filedocumented in this encounter Additional Health Concerns Assessment Noted Time PHQ-9 Depression Total Score: 0 04/06/19 24 3:00 PM EST documented as of this encounter Care Teams Liquid Compounder Relationship Specialty Start Date End Date Marlene Witt MD [address] [place] [address] PCP - General Family Medicine 11/11/22 documented as of this encounter
--- OUTSIDE RECORDS SUMMARY | 2024-04-03 14:29 | XMS_ITS | Clinical Summary ---
Author Organization [employer] Address [address] [facility] [address] [place] [address] Care Team Providers Care Manager Hardware Name Role Phone Marlene Witt MD Primary Care Provider [phone] Allergies No known active allergies Medications * This document contains information received from the source organization and may not represent a complete record from that organization. cetirizine (ZyrTEC) 10 MG tablet Take 1 tablet by mouth at bed time. 11/12/19 21 Active Rtokxfau-Zfi-Xg-F A (, w/Iron & FA,) 27-0.8 MG tablet Take 1 tablet by mouth in the morning. TAKE 1 TABLET BY MOUTH EVERY DAY 90 tablet 3 12/06/19 23 Active Ferrous Sulfate (IRON PO) SMARTSI Tablet(s) By Mouth Every Morning 12/06/19 23 Active docusate sodium (Colace) 100 MG capsule TAKE 1 CAPSULE BY MOUTH ONCE DAILY IN THE MORNING 90 capsule 3 07/05/19 24 Active acetaminophen (Tylenol 8 Hour) 650 MG ER tablet Take 1 tablet (650 mg) by mouth every 8 (eight) hours if needed for mild pain. TAKE 1 TABLET BY MOUTH EVERY TWELVE HOURS NEEDED SWALLOW WHOLE DO NOT BREAK, CRUSH, DISSOLVE OR CHEW 90 tablet 3 07/12/19 24 Active imipramine (Tofranil) 10 MG tablet Take 1 tablet (10 mg) by mouth at bedtime. For fibromyalgia 90 tablet 3 08/25/19 24 025 Active omeprazole (PriLOSEC) [address] capsule Take 1 capsule (20 mg) by mouth before breakfast. Do not crush or chew. 90 capsule 3 08/25/19 24 Active cyclobenzaprine (Flexeril) 10 MG tabletIndications :Low back pain, unspecified back pain laterality, unspecified chronicity, unspecified whether sciatica present One tab po q 12 hours prn pain of muscles, do not drive with medicaion, telugu 30 tablet 09/20/19 24 Active traZODone (Desyrel) 50 MG tablet TAKE 1 TABLET BY MOUTH EVERY DAY AT BEDTIME FOR SLEEP 90 tablet 1 11/27/19 24 Active acyclovir (Zovirax) 800 MG tabletIndications :Herpes simplex infection of genitourinary system TAKE 1 TABLET BY MOUTH THREE TIMES DAILY FOR 2 DAYS. START WITHIN 24 HOURS OF SYMPTOMS 15 tablet 5 12/26/19 24 Active ibuprofen 600 MG tabletIndications :Multiple joint pain TAKE 1 TABLET BY MOUTH EVERY 8 HOURS NEEDED FOR PAIN OR FEVER 60 tablet 3 01/09/20 24 Active lidocaine (Lidoderm) 5 % patchIndications: Anesthesia of skin APPLY 1 PATCH TOPICALLY TO SKIN, LEAVE ON FOR 12 HOURS AND OFF FOR 12 HOURS DIRECTED 30 patch 3 01/17/20 24 Active Vit-Fe Fumarate-FA ( Vitamins) 28-0.8 MG tablet TAKE 1 TABLET BY MOUTH EVERY MORNING 90 tablet 3 01/30/20 24 Active Calcium Carbonate-Vitamin D 600-5 MG-MCG tablet Take 1 tablet by mouth Once per day. 90 tablet 3 02/13/19 25 Active predniSONE (Deltasone) 20 MG tabletIndications :Acute pain of right shoulder 2 tabs po daily for 5 days 10 tablet 04/03/19 25 Active Active Problems Problem Noted Date Diagnosed Date Acute pain of right shoulder 04/03/2024 Assessment & Plan (04/03/2024 11:12 AM EST): Likely inflammatory. Has rheumatology follow-up. -prescribed prednisone 20 mg, BID for 5 days. -referred to PT -ordered XR of right shoulder Incipient enamel caries 11/23/2023 Lumbago 09/20/2023 Assessment & Plan (09/20/2023 9:45 AM EDT): Negative UA. Likely musculoskeletal. Non-focal, normal motor exam without neurological deficits. No back pain red-flags: bowel/bladder incontinence, IVDU, urinary retention, saddle anesthesia, and significant motor deficits. -No previous lumbar spine imaging per chart review. -Ordered XR 09/20/23 -Referred to PT 09/20/23 -Start Cyclobenzaprine 10 mg PRN for pain -Given info for acpuncture -Lifting precaution sand stretching reviewed. -ER precaution discussed. Malaise 07/12/2023 Assessment & Plan (07/12/2023 10:04 AM EDT): - Likely URI - Will check labs for possible rheumatological exacerbation - Start Omeprazole x 1 week - Tylenol prn for pain PTSD (post-traumatic stress disorder) 06/19/2023 Stress reaction 06/05/2023 Assessment & Plan (06/05/2023 2:01 PM EDT): Traumatic event happened recently to her and her child causing intense anxiety [facility] called today for BE, referral placed for OP therapy No SI/HI Normal oral exam 10/31/2022 Dental calculus 10/31/2022 Asthma 08/10/2022 Disorder of bone 08/10/2022 Genital herpes simplex 08/10/2022 History of poliomyelitis 08/10/2022 Multigravida of advanced maternal age 0708/10/2022 Not immune to rubella 08/10/2022 Obesity 08/10/2022 Uses Citizen Of The [place] as primary spoken language 08/11/19 23 Chronic instability of left knee 08/10/2022 Fibromyalgia 08/10/2022 Assessment & Plan (02/19/2024 1:52 PM EST): Discontinue Cymbalta due to intolerance of fatigue Trial Imipramine (TCA) 5-10mg at nighttime for [employer] neuromodulation, very useful to her when she takes it Walk 20-30 minutes every morning Continue to eat healthfully, whole foods and minimal caffeine Assessment & Plan (08/27/2023 1:16 PM EDT): Discontinue Cymbalta due to intolerance of fatigue Trial Imipramine (TCA) 5-10mg at nighttime for [employer] neuromodulation Walk 10-20 minutes every morning Continue to eat healthfully, whole foods and minima caffeine Assessment & Plan (06/05/2023 2:02 PM EDT): Continue Cymbalta Letter revised for [facility] about her response to initiation of CYmbalta Assessment & Plan (04/09/2023 9:17 PM EST): Suspect fibro, central sensitization as well due to stress, burden of working constantly, special needs child, and diffuse location of pain -trial Cymbalta for fibro 20mg daily - trial Trazodone 50mg for sleep nightly Herpes simplex virus (HSV) infection 08/10/2022 Lipoma 08/10/2022 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 Assessment & Plan (08/27/2023 1:17 PM EDT): She is concerned about this, likely due to combination of poor sleep and comorbid mental health stressors/physical health stressors Assessment & Plan (08/10/2022 10:38 PM EDT): Will check pertinent labs: TSH, Vit B12, CMP Recommend increased sleep at least 8 hour/night if possible Recommend tracking and making notes F/u PRN Mood disorder 07/06/2022 Assessment & Plan (07/06/2022 7:58 PM EDT): Per PHQ9 today is 10 by [place] assessment -pt not evaluated by me today for this given screening was completed after I saw pt -pt has apt coming w PCP x next month and will need f up for this w PCP Carpal tunnel syndrome 01/14/2022 Mixed stress and urge urinary incontinence 01/14 Positive MARIE (antinuclear antibody) 01/14/2022 Assessment & Plan (07/06/2022 10:27 AM EDT): Pt with mx joint pain and previous + MARIE and SSA in 01/2022 -Referred today again to rheumatology Multiple joint pain 01/14/2022 Assessment & Plan (08/27/2023 1:15 PM EDT): Rheum followup scheduled 09/2023 Trying to exercise PT referral for R arm/elbow pain and swelling placed for PT in [place] Assessment & Plan (07/06/2022 7:59 PM EDT): Pt w wrist/hand ,knees joint pain and wrist swelling -chronic-worsening Here had recently + MARIE and SSA,RF neg ,rest of MARIE panel was neg and CRP was wnl -tylenol prn and NSAIDS x mod pain prn -pt having her periods normally but advise to be carefull -if missing periods to check x preg in order to continue NSAIDs -referred again today to nursing faculty-spoke today w PA specialist to make sure pt is referred back to her previous specialist by pt request---also advised pt to call -given she was seen before she may be able to schedule apt as well-gave number info of specialist Onycholysis 04/24/2018 Chronic instability of knee 03/27/2018 Knee pain 03/27/2018 Chronic pelvic pain in female 02/27/2017 Uterine leiomyoma 02/15/2017 Allergic rhinitis 11/21/2016 Female infertility 05/24/2016 Overview (08/10/2022): A? 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 Date Type Department Care Team Description 04/03/2024 10:20 AM EST Office Visit [facility] [address] [place] [phone] Acute pain of right shoulder (Primary Dx) 02/27/2024 10:00 AM EST Office Visit [facility] [address] [place] [phone] Shelly Becerra Dental plaque (Primary Dx); Dental calculus 02/14/2024 3:15 PM EST Office Visit [facility] [address] [place] [phone] Marlene Witt MD Fibromyalgia (Primary Dx); Dietary counseling; Exercise counseling; Class 1 obesity with serious comorbidity and body mass index (BMI) of 33.0 to 33.9 in adult, unspecified obesity type; Mild intermittent asthma, unspecified whether complicated; Female infertility; Female stress incontinence; Uses Citizen Of [place] as primary spoken language 02/14/2024 Travel 02/08/2024 Patient Outreach [facility] [address] [place] [phone] Marlene Witt MD Pre-visit Planning (SDOH screening negative and tobacco screening negative) 02/05/2024 Travel 01/29/2024 Refill [facility] [address] [place], [place] [phone] Marlene Witt MD 01/17/2024 Refill [facility] [address] [place], [place] [phone] Marlene Witt MD Anesthesia of skin 01/15/2024 Travel 01/07/2024 Refill [facility] [address] [place] [phone] Marlene Witt MD Multiple joint pain from Last 3 Months Immunizations Name Administration Dates Next Due Hep B, adult 01/04/2022,11/05/2021,07/29/2021 Influenza injectable quadriv alent IIV4 with preservative 02/27/2017 Influenza injectable quadriv alent preservative free 11/05/2021 Influenza, IIV3, injectable 11/05/2018 MMR 06/18/2019 Pfizer Covid-19 Vaccine 12+ 02/19/2021 Pfizer Covid-19 Vaccine 12+ Bivalent 07/06/2022 Tdap 03/26/2019,07/21/2014 Family History Medical History Relation Name Comments Diabetes Father Heart disease Father Prostate cancer Father Prostate cancer Father's Brother Breast cancer Father's Sister Hypertension Father's Sister Stroke Father's Sister Alzheimer's disease Maternal Grandmother Colon cancer Mother Alzheimer's disease Paternal Grandmother Relation Name Status Comments Father Father's Brother Father's Sister Maternal Grandmother Mother Paternal Grandmother Social History Tobacco Use Types Packs/Day Years Used Date Smoking Tobacco: Never Passive Smoke Exposure: Never Smokeless Tobacco: Never Tobacco Cessation:Counseling Given: Not Answered Alcohol Use Standard Drinks/Week Comments Never 0 [...] Orientation Straight 12/06/2021 10 :27 AM EDT Last Filed Vital Signs Vital Sign Reading Time Taken Comments Blood Pressure 114/70 04/03/2024 10:31 AM EST Pulse 77 04/03/2024 10:31 AM EST Temperature 36.7 ??C (98.1 ??F) 04/03/2024 10:[address] Respiratory Rate 16 04/03/2024 10:31 AM EST Oxygen Saturation 99% 04/03/2024 10:31 AM EST Inhaled Oxygen Concentration - - Weight 82.6 kg (182 lb) 04/03/2024 10:31 AM EST Height 152.4 cm (5') 02/14/2024 3:10 PM EST Body Mass Index 35.54 02/14/2024 3:10 PM EST Plan of Treatment Upcoming Encounters Date Type Department Care Team (Late st Contact Info) Description 08/28/2024 10:00 AM EDT Office Visit [facility] [address] [place] [address] Mariam, Shelly [address] [place] [address] Health Maintenance Due Date Last Done Comments CT Colonography 1980 Colonoscopy 1978 Colorectal Cancer Screening 1980 FIT DNA/Cologuard 1978 FIT 1980 FOBT 1980 Sigmoidoscopy 1980 Family Planning (PISQ) 1993 Pneumococcal Vaccine: Pediatrics (0 to 5 Years) and At-Risk Patients (6 to 49) Years) (1 of 2 - PCV) 1997 COVID-19 Vaccine ( season) 2023 07/06/2022, 02/19/2021, 07/16/2020, Additional history exists Influenza Vaccine (#1) 2023 , 11/05/2018, 02/27/2017 Dental X-Ray: Full Mouth 12/31/2023 12/29/2020, 03/09 Depression Screening 04/05/2024 04/06/2023, 04/06/19 Dental Oral Exam 05/24/2024 11/23/2023, , 12/29/2020, Additional history exists Mammogram 08/22/2024 08/23/2023, 08/06, 07/28/2021, Additional history exists Alcohol/Substance Use Screening 08/24/2024 08/25/2023 Dental Prophylaxis 08/27/2024 02/27/2024, 1 , 05/23/2023, Additional history exists Dental X-Ray: Bitewings 11/23/2024 11/23/19 24, 10/31/2022, 12/29/2020, Additional history exists HPV/Cotest 01/12/2025 01/13/2020, 04/05/2018 SDOH Screening 02/07/2025 02/08/2024 Tobacco Screening 02/26/2025 02/27/2024 Cervical Cancer Screening 08/14/2026 Pap Smear 08/14/2026 08/15/2023, 08/07/2023 Zoster Vaccines (1 of 2) 2028 Lipid Panel 08/24/2028 08/25/2023 DTaP/Tdap/Td Vaccines (3 - Td or Tdap) 03/26/2029 03/26/2019, 07/21/2014 RSV Patients and Patients Aged 60 years or older (1 - 1-dose 75+ series) 2053 Hepatitis B Vaccines Completed 01/04/2022, 11/05/2021, 07/29/2021 HIV Screening Completed 08/25/2023 Hepatitis C Screening Completed 08/25/2023 HIB Vaccines Aged Out No longer eligi [...] patient's age to complete this topic Meningococcal Vaccine Aged Out No giuliano alvarado eligible based on patient's age to complete this topic RSV under 20 months Aged Out No longe r eligible based on patient's age to complete this topic Rotavirus Vaccines Aged Out No longer eligible based on patient's age to complete this topic Procedures Procedure Name Priority Date/Time Associated Diagnosis Comments XR SHOULDER 2+ VIEWS RIGHT Routine 04/03/2024 11:32 AM EST Acute pain of right shoulder CASE PRESENTATION, DETAILED AND EXTENSIVE TREATMENT PLANNING Routine 02/27/2024 10:00 AM EST Dental plaque Dental calculus ORAL HYGIENE INSTRUCTIONS Routine 02/27/2024 10:00 AM EST Dental plaque Dental calculus PROPHYLAXIS - ADULT Routine 02/27/2024 1 0:00 AM EST Dental plaque Dental calculus BITEWINGS - 4 RADIOGRAPHIC IMAGES Routine 11/23/2023 8:00 AM EDT Incipient enamel caries Dental calculus PERIODIC ORAL EVALUATION - ESTABLISHED PATIENT Routine 11/23/2023 8:00 AM EDT HEPATITIS C AB W/REFL TO HCV RNA, QN, PCR Routine 08/25/2023 11:42 AM EDT Encounter for routine adult physical exam with abnormal findings HIV 1/2 ANTIGEN/ANTIBODY, FOURTH GENERATION W/RFL Routine 08/25/2023 11:42 AM EDT Encounter for routine adult physical exam with abnormal findings LIPID PANEL, STANDARD Routine 08/25/2023 11:42 AM EDT Encounter for routine adult physical exam with abnormal findings BI MAMMOGRAM SCREENING TOMOSYNTHESIS BILATERAL Routine 08/23/2023 3:12 PM EDT PAP SMEAR Routine 08/15/2023 12:00 AM EDT INTRAORAL - COMPLETE SERIES OF RADIOGRAPHIC IMAGES Routine 12/29/2020 12:00 AM EST ZZZ HISTORICAL HPV MRNA E6/E7 Routine 01/13/2020 12:38 PM EST from Last 3 Months or Most Recently Relevant to Health Maintenance Results * XR Shoulder 2+ Views Right (04/03/2024 11:32 AM EST) Anatomical Region Laterality Modality Upper Extremities, Shoulder Right Radi ographic Imaging 04/03/2024 11:3 2 AM EST Narrative 04/03/2024 12:05 PM EST ?[facility] ?[address] ?[place] [address] ?XRay Report ? Signed ? Patient: Glenn De Ling,Kiera ?MR# ?? : [id number] ? : 1980 ?Acct:[id number] ? Age/Sex: 43 / F ?ADM Date: 04/03/24 ? Loc: HO.HHCX ? Attending Dr: Ness Hernandez MD ? Ordering Physician: Ness Hernandez MD ?? Date of Service: 04/03/24 ?? Procedure(s): XR shoulder RT min 2V ?? Accession Number(s): [id number] ? cc: Ness Hernandez MD ? EXAMINATION: [...] ??Sergei Knapp MD ??04/03/2024 12:02 PM EST ?? RP ? Dictated By: ?Sergei Knapp MD ? Signed By: ?<Electronically signed by Sergei Knapp MD in OV> ?04/03/24 1202 ? DD/ 1132 ? TD/TT: 04/03/24 1148 ? Supervisor Loading: ? Procedure Note Caridad, Image - 04/03/2024 [facility] [address] [place] [address] XRay Report Signed Patient: Kim Myers# : [id number] : 1980Acct:[id number] Age/Sex: 43 / FADM Date: 04/03/24 Loc: HO.HHCX Attending Dr: Ness Hernandez MD Ordering Physician: Ness Hernandez MD Date of Service: 04/03/24 Procedure(s): XR shoulder RT min 2V Accession Number(s): [id number] cc: Ness Hernandez MD EXAMINATION: XR SHOULDER [...] by: Sergei Knapp MD 04/03/2024 12:02 PM EST Dictated By: Sergei Knapp MD Signed By: <Electronically signed by Sergei Knapp MD in OV> 04/03/24 1202 DD/ 1132 TD/TT: 04/03/24 1148 Supervisor Loading: Ness Hernandez MD IMG XR PROCEDURES Final Re sult * Hepatitis C Antibody with Reflex to HCV, RNA, Quantitative, Real-Time PCR (08/25/2023 11:42 AM EDT) Hepatitis C Antibody Nonreactive Nonreactive [facility] Comment:Antibodies to HCV no t detected; does not exclude early acuteHCV infection. Blood Venous blood specimen / Unknown 08/25/2023 11:42 AM EDT 08/25/2023 12:57 PM EDT Marlene Witt MD LAB BLOOD ORDERABLES Final Res ult [facility] [address] [place] [phone] * HIV-1/2 Antigen and Antibodies, Fourth Generation, with Reflexes (08/25/2023 11:42 AM EDT) HIV AB/AG Nonreactive Nonreactive [facility] Comment:HIV-1 p24 Ag and/or HIV-1/HIV-2 Ab not detected.A test result that is nonreactive does not exclude thepossibility of exposure to or infection with HIV-1 and/orHIV-2. Nonreactive results in this assay for individualswith prior exposure to HIV-1 and/or HIV-2 may be due toantigen and antibody levels that are below the limit ofdetection of this assay.The [employer] HIV Ag/Ab Combo assay result andsupplemental assay results should be interpreted inconjunction with the patient's clinical presentation,history and other laboratory results. If the results areinconsistent with clinical evidence, additional testing issuggested to confirm the result. Blood Venous blood specimen / Unknown 08/25/2023 11:42 AM EDT 08/25/2023 12:57 PM EDT us Marlene Witt MD LAB BLOOD ORDERABLES Final Res ult [facility] [address] [place] [phone] * Lipid Panel, Standard (08/25/2023 11:42 AM EDT) Triglycerides 51 <150 mg/dL [facility] Comment:Desirable Triglyceri de: less than 150 mg/dLBorderline High Triglyceride 150-199 mg/dLHigh Triglyceride: 200-499 mg/dLVery High Triglyceride: greater than or equal to 5OO mg/dL Cholesterol 141 <200 mg/dL [facility] Comment:Desirable Cholestero l: less than 200 mg/dLBorderline High Cholesterol: 200-239 mg/dLHigh Cholesterol: greater than 239 mg/dL LDL Cholesterol Calculated 78 <100 mg/dL [facility] Comment:Desirable LDL: less than 100 mg/dLNear Optimal/Above Optimal LDL: 110- 129 mg/dLBorderline High LDL: 130-159 mg/dLHigh LDL: 160-189 mg/dLVery High LDL: greater than or equal to 190 mg/dL HDL Cholesterol 53 >40 mg/dL [facility] Comment:Desirable HDL: great er than 40 mg/dL Note: This HDL assay may give artificially low results in patients with liver disease. Blood Venous blood specimen / Unknown 08/25/2023 11:42 AM EDT 08/25/2023 12:57 PM EDT us Marlene Witt MD LAB BLOOD ORDERABLES Final Res ult [facility] [address] [place] [phone] * BI Mammogram Screening Tomosynthesis Bilateral (08/23/2023 3:12 PM EDT) Anatomical Region Laterality Modality Breast Bilateral Mammography 08/23/2023 3:12 PM EDT Narrative 09/13/2023 1:44 PM EDT ? [facility] [place] ? [address] ?[place] [phone] ? Mammography Report ? Signed ? Patient: Kiera Myers ?MR# ?? : [id number] ? : 1980 ?Acct:[id number] ? Age/Sex: 43 / F ?ADM Date: //24 ? Loc: HO.MAMMO ? Attending Dr: Marlene Witt MD ? Ordering Physician: Marlene Witt ?Results: 1Negative ? Date of Service: 08/23/23 ?Follow Up: 1 Year From Orig ?? inal Mammogram ? Procedure(s): MM tomosynthesis screening BI ?? Accession Number(s): [id number] ? cc: Marlene Witt ? EXAMINATION: ?? MM SCREENING DIGITAL BREAST TOMOSYNTHESIS, BILATERAL ? CLINICAL INFORMATION: ? Screening. Asymptomatic. ? COMPARISON: ?? Mammography: This study is compared with prior exams dating back to ?? 2019. ? TECHNIQUE: ?? Digital breast tomosynthesis is performed in both the craniocaudal and ?? mediolateral oblique views along with computer-aided detection (CAD). ?? Synthesized 2D images are generated from the tomosynthesis. ? FINDINGS: ?? The breasts are heterogeneously dense, which may obscure small masses ?? (ACR BI-RADS breast composition Category c). ? There are no significant masses, abnormal calcifications, or other ?? abnormalities. ? MM/MM tomosynthesis screening BI ?? IMPRESSION: ?? No mammographic evidence of malignancy. ? ASSESSMENT: ? BI-RADS BI-RADS 1 - Negative ? RECOMMENDATION: ?? Routine annual mammography screening. ? 1 year F/U ? This examination should not preclude the clinical evaluation of a ?? suspicious palpable abnormality. ? This patient's information was entered into a reminder system with a ?? target due date for their next mammogram. ? Dictated By: ?Margaux Madera MD ? Signed By: ?<Electronically signed by Margaux Madera MD in OV> ? 09/13/23 1340 ? DD/ 1512 ? TD/TT: ? Supervisor Loading: ? Procedure Note Caridad, Image - 09/13/2023 [facility] [address] [place] [address] Mammography Report Signed Patient: Glenn Kiera Langley# : [id number] : 1980Acct:[id number] Age/Sex: 43 / FADM Date: 08/23/23 Loc: [facility] Attending Dr: Marlene Witt MD Ordering Physician: Blanka Wittults: 1Negative Date of Service: 08/23/23Follow Up: 1 Year From Orig inal Mammogram Procedure(s): MM tomosynthesis screening BI Accession Number(s): [id number] cc: Marlene Witt EXAMINATION: MM SCREENING DIGITAL BREAST TOMOSYNTHESIS, BILATERAL CLINICAL INFORMATION: Screening. Asymptomatic. COMPARISON: Mammography: This study is compared with prior exams dating back to 2019. TECHNIQUE: Digital breast tomosynthesis is performed in both the craniocaudal and mediolateral oblique views along with computer-aided detection (CAD). Synthesized 2D images are generated from the tomosynthesis. FINDINGS: The breasts are heterogeneously dense, which may obscure small masses (ACR BI-RADS breast composition Category c). There are no significant masses, abnormal calcifications, or other abnormalities. MM/MM tomosynthesis screening BI IMPRESSION: No mammographic evidence of malignancy. ASSESSMENT: BI-RADS BI-RADS 1 - Negative RECOMMENDATION: Routine annual mammography screening. 1 year F/U This examination should not preclude the clinical evaluation of a suspicious palpable abnormality. This patient's information was entered into a reminder system with a target due date for their next mammogram. Dictated By: Margaux Madera MD Signed By: <Electronically signed by Margaux Madera MD in OV> 09/13/23 1340 DD/ 1512 TD/TT: Supervisor Loading: Marlene Witt MD IMG BI PROCEDURES Final Result * Pap Smear (08/15/2023 12:00 AM EDT) Swab Marlene Witt MD LAB CYTOLOGY ORDERABLES Final Result [facility] [address] [place] [phone] * HPV mRNA E6/E7 (01/13/2020 12:38 PM EST) HPV mRNA E6/E7 Not Detected Not Detected [facility] Comment: This test was performed using the APTIMA HPV Assay ([employer] This assay detects E6/E7 viral messenger RNA (mRNA) from 14 high-risk HPV types (16,18,31,33,35,39,45,51,52,56,58,59,66,68). The analytical performance characteristics of this assay have been determined by [employer]. The modifications have not been cleared or approved by the FDA. This assay has been validated pursuant to the CLIA regulations and is used for clinical purposes. THIS TEST WAS PERFORMED AT: [employer] [address] [place] [address] [address] [place], [place] ??[id number] BRITTON ROMO MD 01/13/2020 12:3 8 PM EST Elaina France HISTORICAL/NON ORDERABLE LABS Fi nal Result [facility] [address] from Last 3 Months or Most Recently Relevant to Health Maintenance Insurance [facility] STAND ADULT Care Teams Manager Hardware Relationship Specialty Start Date End Date Marlene Witt MD [address] [place] [address] PCP - General Family Medicine 11/11/22
--- OUTSIDE RECORDS SUMMARY | 2024-04-03 14:29 | XMS_ITS | Encounter Summary ---
Author Organization [employer] Address 75 [facility] 7 [place] [address] Care Team Providers Care Canal Tender Name Role Phone Marlene Witt MD Primary Care Provider [phone] Reason for Visit * Reason Comments Med Refill Encounter Details Date Type Department Care Team ([facility] st Contact Info) Description 03/30/2023 Refill [facility] MEDICINE [address] [place], [place] [phone] Jayde Dubose MD [address] [place] [address] Social History Tobacco Use Types Packs/Day Years Used Date Smoking Tobacco: Never Passive Smoke Exposure: Never Smokeless Tobacco: Never Alcohol Use Standard Drinks/Week Comments Never 0 (1 standard drink = 0.6 oz pur e alcohol) Depression Answer Date Recorded Patient Health Questionnaire-9 Score 10 07/06/2022 Housing Stability Answer Date Recorded What is your housing situation today? I have housing today, but I am worried about losing housing in the future 03/30/[address] you li ve. Do you have problems with any of the following? None of the above 03/30/2023 Food Insecurity Answer Date Recorded Within the past 12 months, y ou worried that your food would run out before you got money to buy more: Sometimes True 2022 Within the past 12 months,th e food you bought just didn't last and you didn't have enough money to get more: Sometimes True 12/01/2022 Transportation Answer Date Recorded In the past 12 months, has l ack of transportation kept you from medical appts, meetings, work or from getting things needed for daily living? No 12/01/2022 Utilities Answer Date Recorded In the past 12 months, has t he electric, gas, oil or water company threatened to shut off services in your home? Yes 11/14/2022 Depression Answer Date Recorded Patient Health Questionnaire-2 [...] Description 08/28/2024 10:00 AM EDT Office Visit [facility] ADULT DENTAL [address] [place] [address] Shelly Becerra [address] [place] [address] documented as of this encounter Visit Diagnoses Not on filedocumented in this encounter Additional Health Concerns Assessment Noted Time PHQ-9 Depression Total Score: 10 023 11:28 AM EDT documented as of this encounter Care Teams Canal Tender Relationship Specialty Start Date End Date Marlene Witt MD [address] [place] [address] PCP - General Family Medicine 11/11/22 documented as of this encounter
--- OUTSIDE RECORDS SUMMARY | 2024-04-03 14:29 | XMS_ITS | Encounter Summary ---
Author Organization [employer] Address 75 [facility] 7t [place] [address] Care Team Providers Care Physician Scientist Name Role Phone Marlene Witt MD Primary Care Provider [phone] Encounter Details Date Type Department Care Team ([facility] st Contact Info) Description 08/21/2023 Orders Only [facility] MEDICINE [address] [place], [place] [phone] Claudia Webster, RN [address] [place] [address] Social History Tobacco Use Types Packs/Day Years [...] 08/28/2024 10:00 AM EDT Office Visit [facility] ADULT DENTAL [address] [place] [address] Shelly Becerra [address] [place] [address] documented as of this encounter Procedures Procedure Name Priority Date/Time Associated Diagnosis Comments PAP SMEAR Routine 08/15/2023 12:00 AM EDT documented in this encounter Results * Pap Smear (08/15/2023 12:00 AM EDT) Swab us Marlene Witt MD LAB CYTOLOGY ORDERABLES Final Result [facility] [address] [place] [address] [phone] documented in this encounter Visit Diagnoses Not on filedocumented in this encounter Additional Health Concerns Assessment Noted Time PHQ-9 Depression Total Score: 0 04/06/19 24 3:00 PM EST documented as of this encounter Care Teams Physician Scientist Relationship Specialty Start Date End Date Marlene Witt MD [address] [place] [address] PCP - General Family Medicine 11/11/22 documented as of this encounter
--- OUTSIDE RECORDS SUMMARY | 2024-04-03 14:29 | XMS_ITS | Encounter Summary ---
Author Organization [employer] Address 75 [facility] 7t [place] [address] Care Team Providers Care Electronics Engineering Technician Name Role Phone Angie Abdul Primary Care Provider [phone] Marlene Witt MD Primary Care Provider [phone] Encounter Details Date Type Department Care Team ([facility] Contact Info) Description 07/20/2022 Orders Only [facility] MED & PEDS [address] [place] [address] Juany Pratt LPN Social History Tobacco Use Types Packs/Day Years Used Date Smoking Tobacco: Never Passive Smoke Exposure: Never Smokeless Tobacco: Never Alcohol Use Standard Drinks/Week Comments Never 0 (1 standard drink = 0.6 oz pur e alcohol) Depression Answer Date Recorded Patient Health Questionnaire-9 Score 10 07/06/2022 Depression Answer Date Recorded Patient Health Questionnaire-2 Score 2 07/06/2022 Comments Unknown Sex and Gender Information Value Date Recorded Sex Assigned at Female 12/06/2021 10:27 AM EDT Legal Sex Female 10:27 AM EDT Gender Identity Female 12/06/2021 10:27 AM EDT Sexual Orientation Straight 12/06/2021 10 :27 AM EDT COVID-19 Exposure Response Date Recorded In the last 10 days, have yo u been in contact with someone who was confirmed or suspected to have Coronavirus/COVID-19? No / Unsure 07/06/2022 10:10 AM EDT documented as of this encounter Plan of Treatment Upcoming Encounters Date Type Department Care Team ([facility] Contact Info) Description 08/28/2024 10:00 AM EDT Office Visit [facility] ADULT DENTAL [address] [place] [address] Shelly Becerra [address] [place] [address] documented as of this encounter Procedures Procedure Name Priority Date/Time Associated Diagnosis Comments XR FOOT 3+ VIEWS RIGHT Routine 08/10/2022 11:44 AM EDT XR FOOT 3+ VIEWS LEFT Routine 08/10/2022 11:44 AM EDT documented in this encounter Results * XR Foot 3+ Views Right (08/10/2022 11:44 AM EDT) Anatomical Region Laterality Modality Lower Extremities, Foot Right [facility] 08/10/2022 11:4 4 AM EDT Narrative 08/22/2022 12:05 PM EDT ?[facility] ?[address] ?[place] [address] ?XRay Report ? Signed ? Patient: Glenn De Ling,Kiera ?MR# ?? : [id number] ? : 1980 ?Acct:[id number] ? Age/Sex: 41 / F ?ADM Date: 08/10/22 ? Loc: HO.HHCX ? Attending Dr: Angie Abdlu SOFTWARE QA SYSTEM SPECIALIST ? Ordering Physician: Angie Abdul SOFTWARE QA SYSTEM SPECIALIST ?? Date of Service: 08/10/22 ?? Procedure(s): XR foot RT min 3V ?? Accession Number(s): [id number] ? cc: Angie Abdul SOFTWARE QA SYSTEM SPECIALIST ? EXAMINATION: ?? XR FOOT, RIGHT ? CLINICAL INFORMATION: ?? Sole of foot pain of greater than one year's duration. ? COMPARISON: ?? None available. ? TECHNIQUE: ?? AP, lateral, and oblique views of the right foot. ? FINDINGS: ?? Bony alignment and mineralization are normal. No fracture, dislocation ?? or right joint effusion is seen. Boehler's angle is normal. There are ?? small posterior and minimal plantar calcaneal spurs. No focal soft ?? tissue swelling, gas or foreign body is seen. ? XR/XR foot RT min 3V ?? IMPRESSION: ? 1. No fracture, dislocation or right ankle joint effusion is seen. ? 2. There are calcaneal spurs. ? EXAMINATION: ?? XR FOOT, LEFT ? CLINICAL INFORMATION: ?? Sole of foot pain of greater than one year's duration. ? COMPARISON: ?? Radiographs dated 11/20/2017. ? TECHNIQUE: ?? AP, lateral, and oblique views of the left foot. ? FINDINGS: ?? Bony alignment and mineralization are normal. No fracture, dislocation ?? or left ankle joint effusion is seen. Boehler's angle is normal. There ?? are small to moderate posterior and plantar calcaneal spurs. There are ?? degenerative changes of the dorsal midfoot. No focal soft tissue ?? swelling, gas or foreign body is seen. ? IMPRESSION: ? 1. No fracture, dislocation or left ankle joint effusion is seen. ? 2. There are calcaneal spurs. ? Dictated By: ?Varun Tobin MD ? Signed By: ?<Electronically signed by Varun Tobin MD in OV> ? 08/22/22 1202 ? DD/ 1144 ? TD/TT: ? Driver Engineer: SABRINA ? Procedure Note Evette Mclean - 08/22/2022 [place] [address] XRay Report Signed Patient: Kiera Myers# : [id number] : 1980Acct:[id number] Age/Sex: 41 / FADM Date: 08/10/22 Loc: HO.HHCX Attending Dr: Angie Abdul SOFTWARE QA SYSTEM SPECIALIST Ordering Physician: Angie Abdul Date of Service: 08/10/22 Procedure(s): XR foot RT min 3V Accession Number(s): [id number] cc: Angie Abdul SOFTWARE QA SYSTEM SPECIALIST EXAMINATION: XR FOOT, RIGHT CLINICAL INFORMATION: Sole of foot pain of greater than one year's duration. COMPARISON: None available. TECHNIQUE: AP, lateral, and oblique views of the right foot. FINDINGS: Bony alignment and mineralization are normal. No fracture, dislocation or right joint effusion is seen. Boehler's angle is normal. There are small posterior and minimal plantar calcaneal spurs. No focal soft tissue swelling, gas or foreign body is seen. XR/XR foot RT min 3V IMPRESSION: 1. No fracture, dislocation or right ankle joint effusion is seen. 2. There are calcaneal spurs. EXAMINATION: XR FOOT, LEFT CLINICAL INFORMATION: Sole of foot pain of greater than one year's duration. COMPARISON: Radiographs dated 11/20/2017. TECHNIQUE: AP, lateral, and oblique views of the left foot. FINDINGS: Bony alignment and mineralization are normal. No fracture, dislocation or left ankle joint effusion is seen. Boehler's angle is normal. There are small to moderate posterior and plantar calcaneal spurs. There are degenerative changes of the dorsal midfoot. No focal soft tissue swelling, gas or foreign body is seen. IMPRESSION: 1. No fracture, dislocation or left ankle joint effusion is seen. 2. There are calcaneal spurs. Dictated By: Varun Tobin MD Signed By: <Electronically signed by Varun Tobin MD in OV> 08/22/22 1202 DD/ 1144 TD/TT: Driver Engineer: SABRINA [facility] External Provider IMG XR PROCEDURES Final Result * XR Foot 3+ Views Left (08/10/2022 11:44 AM EDT) Anatomical Region Laterality Modality Lower Extremities, Foot Left [facility] 08/10/2022 11:4 4 AM EDT Narrative 08/22/2022 12:05 PM EDT ?[facility] ?[address] ?[place] [address] ?XRay Report ? Signed ? Patient: Glenn De Ling,Kiera ?MR# ?? : [id number] ? : 1980 ?Acct:[id number] ? Age/Sex: 41 / F ?ADM Date: 07/05/23 ? Loc: HO.HHCX ? Attending Dr: Angie Abdul SOFTWARE QA SYSTEM SPECIALIST ? Ordering Physician: Angie Abdul SOFTWARE QA SYSTEM SPECIALIST ?? Date of Service: 08/10/22 ?? Procedure(s): XR foot LT min 3V ?? Accession Number(s): [id number] ? cc: Angie Abdul SOFTWARE QA SYSTEM SPECIALIST ? EXAMINATION: ?? XR FOOT, RIGHT ? CLINICAL INFORMATION: ?? Sole of foot pain of greater than one year's duration. ? COMPARISON: ?? None available. ? TECHNIQUE: ?? AP, lateral, and oblique views of the right foot. ? FINDINGS: ?? Bony alignment and mineralization are normal. No fracture, dislocation ?? or right joint effusion is seen. Boehler's angle is normal. There are ?? small posterior and minimal plantar calcaneal spurs. No focal soft ?? tissue swelling, gas or foreign body is seen. ? XR/XR foot LT min 3V ?? IMPRESSION: ? 1. No fracture, dislocation or right ankle joint effusion is seen. ? 2. There are calcaneal spurs. ? EXAMINATION: ?? XR FOOT, LEFT ? CLINICAL INFORMATION: ?? Sole of foot pain of greater than one year's duration. ? COMPARISON: ?? Radiographs dated 11/20/2017. ? TECHNIQUE: ?? AP, lateral, and oblique views of the left foot. ? FINDINGS: ?? Bony alignment and mineralization are normal. No fracture, dislocation ?? or left ankle joint effusion is seen. Boehler's angle is normal. There ?? are small to moderate posterior and plantar calcaneal spurs. There are ?? degenerative changes of the dorsal midfoot. No focal soft tissue ?? swelling, gas or foreign body is seen. ? IMPRESSION: ? 1. No fracture, dislocation or left ankle joint effusion is seen. ? 2. There are calcaneal spurs. ? Dictated By: ?Varun Tobin MD ? Signed By: ?<Electronically signed by Varun Tobin MD in OV> ? 08/22/22 1202 ? DD/ 1144 ? TD/TT: ? Driver Engineer: SABRINA ? Procedure Note Evette Mclean - 08/22/2022 [facility] [address] [place] [address] XRay Report Signed Patient: Kiera MyersMR# : [id number] : 1980Acct:[id number] Age/Sex: 41 / FADM Date: 08/10/22 Loc: HO.HHCX Attending Dr: Angie Abdul SOFTWARE QA SYSTEM SPECIALIST Ordering Physician: Angie Abdul SOFTWARE QA SYSTEM SPECIALIST Date of Service: 08/10/22 Procedure(s): XR foot LT min 3V Accession Number(s): [id number] cc: Angie Abdul SOFTWARE QA SYSTEM SPECIALIST EXAMINATION: XR FOOT, RIGHT CLINICAL INFORMATION: Sole of foot pain of greater than one year's duration. COMPARISON: None available. TECHNIQUE: AP, lateral, and oblique views of the right foot. FINDINGS: Bony alignment and mineralization are normal. No fracture, dislocation or right joint effusion is seen. Boehler's angle is normal. There are small posterior and minimal plantar calcaneal spurs. No focal soft tissue swelling, gas or foreign body is seen. XR/XR foot LT min 3V IMPRESSION: 1. No fracture, dislocation or right ankle joint effusion is seen. 2. There are calcaneal spurs. EXAMINATION: XR FOOT, LEFT CLINICAL INFORMATION: Sole of foot pain of greater than one year's duration. COMPARISON: Radiographs dated 11/20/2017. TECHNIQUE: AP, lateral, and oblique views of the left foot. FINDINGS: Bony alignment and mineralization are normal. No fracture, dislocation or left ankle joint effusion is seen. Boehler's angle is normal. There are small to moderate posterior and plantar calcaneal spurs. There are degenerative changes of the dorsal midfoot. No focal soft tissue swelling, gas or foreign body is seen. IMPRESSION: 1. No fracture, dislocation or left ankle joint effusion is seen. 2. There are calcaneal spurs. Dictated By: Varun Tobin MD Signed By: <Electronically signed by Varun Tobin MD in OV> 08/22/22 1202 DD/ 1144 TD/TT: Driver Engineer: SABRINA [facility] External Provider IMG XR PROCEDURES Final Result documented in this encounter Visit Diagnoses Not on filedocumented in this encounter Additional Health Concerns Assessment Noted Time PHQ-9 Depression Total Score: 10 023 11:28 AM EDT documented as of this encounter Care Teams Electronics Engineering Technician Relationship Specialty Start Date End Date Angie Abdul FNP PCP - General Family Medicine 10/02/21 11/10/22 Marlene Witt MD [address] [place] [address] PCP - General Family Medicine 11/11/22 documented as of this encounter
--- OUTSIDE RECORDS SUMMARY | 2024-04-03 14:29 | XMS_ITS | Encounter Summary ---
Author Organization [employer] Address 75 [facility] 7t [place] [address] Care Team Providers Care Optical Fabricator Name Role Phone Marlene Witt MD Primary Care Provider [phone] Reason for Visit * Reason Onset Date Comments Nurse Triage 04/12/2023 Encounter Details Date Type Department Care Team ([facility] st Contact Info) Description 04/12/2023 Telephone [facility] MEDICINE [address] [place], [place] [phone] Marlene Witt MD [address] [place] [address] Nurse Triage Social History Tobacco Use Types Packs/Day Years [...] encounter Miscellaneous Notes * Telephone Encounter - Claudia Webster RN - 04/14/2023 11:42 AM EST TC placed to pt [phone] informing pt of below recommendation regarding Cymbalta medication. Ptreports she has been taking medication at night before bed since it was Rx'd (script states AM but pt was not taking medication this way). Pt reports she did not take the medication last night and this AM did not have any s/s. Pt is looking for alternative medication d/t side effects. Please advise. * Telephone Encounter - Mary Kenny RN - 04/12/2023 1:21 PM EST Triage call with [place] [employer] Specialist [place] [id number] Pt reports was prescribed new medication 04/06/23, (cymbalta 20mg) and has had nausea, and sleepiness when takes this med. Pt just started taking the medication 04/09/33 and 04/11/23. Pt reports it is helping pain very well. Pt would like to speak to provider regarding these side effects. Pt is advised will send this question to PCP and nursing team for follow up. Pt is advised to continue to take medication as prescribed until speaks with nursing team or provider which could be in a day or so. Pt agrees with disposition and plan. Protocol Used: Medication Question Call (Adult) Protocol-Based Disposition: Callback or Video Visit by PCP Today Video visit not offered Positive Triage Question: * Caller has NON-URGENT medicine question about med that PCP or specialist prescribed and triager unable to answer question * All higher-acuity triage questions were negative Care Advice Discussed: * Reasons To Call Back - You have any more questions - You become worse * Telephone Encounter - Eleonora Ellis - 04/12/2023 11:39 AM EST Symptom: Nausea But No Vomiting due to mediation that were prescribed last visit . Outcome: Schedule an appointment to be seen within 3 days Reason: Caller denied all higher acuity questions The caller accepted this outcome documented in this encounter Plan of Treatment Upcoming Encounters Date Type Department Care Team (Late st Contact Info) Description 08/28/2024 10:00 AM EDT Office Visit [facility] ADULT DENTAL [address] [place] [address] Mariam, Shelly [address] [place] [address] documented as of this encounter Visit Diagnoses Not on filedocumented in this encounter Additional Health Concerns Assessment Noted Time PHQ-9 Depression Total Score: 0 04/06/19 24 3:00 PM EST documented as of this encounter Care Teams Optical Fabricator Relationship Specialty Start Date End Date Marlene Witt MD [address] [place] [address] PCP - General Family Medicine 11/11/22 documented as of this encounter
--- OUTSIDE RECORDS SUMMARY | 2024-04-03 14:29 | XMS_ITS | Encounter Summary ---
Author Organization [employer] [facility] Address [address] [place] [address] [address] [place] [address] Care Team Providers Care Blocker Metal Base Name Role Phone Angie Abdul Primary Care Provider [phone] Marlene Witt MD Primary Care Provider [phone] Encounter Details Date Type Department Care Team (Latest Contact Info) Description 12/29/2020 Abstract [facility] CONVERSIONS Dental, Provider, DDS Social History [...] Description 08/28/2024 10:00 AM EDT Office Visit [facility] ADULT DENTAL [address] [place] [address] Mariam, Shelly [address] [place] [address] documented as of this encounter Visit Diagnoses Not on filedocumented in this encounter Care Teams Blocker Metal Base Relationship Specialty Start Date End Date Angie Abdul FNP PCP - General Family Medicine 10/02/21 11/10/22 Marlene Witt MD [address] [place] [address] PCP - General Family Medicine 11/11/22 documented as of this encounter
== END 2024-04-03 11:32 | disposition home or self-care (01) ==
LOC: HO.HHCX 11:31
PROVIDERS: Visit Provider Family Medicine
DX: M25.511 Pain in right shoulder (principal)
CPT/HCPCS: 73030

== ENCOUNTER → 2024-04-03 11:32 | Outpatient (BNV) | payer MEDICAID, SELFPAY | PROVIDERS: Visit Provider Radiology Diagnostic Radiology | DX: M25.511 Pain in right shoulder (principal) | CPT/HCPCS: 73030 ==

== ENCOUNTER 2024-07-26 15:02 | Outpatient (REF) | payer MEDICAID, SELFPAY ==
--- OUTSIDE RECORDS SUMMARY | 2024-07-26 15:05 | XMS_ITS | Encounter Summary ---
Author Organization [employer] Address 75 [facility] 7t [place] [address] Care Team Providers Care Radio Repairman Name Role Phone Marlene Witt MD Primary Care Provider [phone] Reason for Visit * Reason Comments Med Refill Encounter Details Date Type Department Care Team ([facility] st Contact Info) Description 09/25/2023 Refill [facility] MEDICINE [address] [place], [place] [phone] Marlene Witt MD [address] [place] [address] Social History Tobacco Use Types Packs/Day Years [...] Care Team (Late st Contact Info) Description 08/02/2024 10:00 AM EDT Office Visit [facility] MEDICINE [address] [place] [address] Salomón Estrella MD [address] [place] [address] 08/12/2024 1:00 PM EDT Clinical Support [facility] DIABETES/NUTRITION [address] [place] [address] Kylie Fletcher, MARY [address] [place] [address] 08/28/2024 10:00 AM EDT Office Visit [facility] ADULT DENTAL [address] [place] [address] Mariam, Shelly [address] [place] [address] 10/29/2024 10:15 AM EDT Office Visit [facility] MEDICINE [address] [place] [address] Marlene Witt MD [address] [place] [address] documented as of this encounter Visit Diagnoses Not on filedocumented in this encounter Additional Health Concerns Assessment Noted Time PHQ-9 Depression Total Score: 0 04/06/19 24 3:00 PM EST documented as of this encounter Care Teams Radio Repairman Relationship Specialty Start Date End Date Marlene Witt MD [address] [place] [address] PCP - General Family Medicine 11/11/22 documented as of this encounter
[2024-07-27 09:54] LABS: Follicle Stimulating Hormone 2.1 mIU/mL; Lutenizing Hormone 6.6 mIU/mL
[2024-08-01 02:19] LABS: Estrogen 321 pg/mL
== END 2024-07-26 15:03 | disposition home or self-care (01) ==
LOC: HO.HHCL 15:02
PROVIDERS: PCP General Practice; Visit Provider General Practice
DX: R23.2 Flushing (principal)
CPT/HCPCS: 36415; 82672; 83001; 83002

== ENCOUNTER 2024-08-28 14:16 | Outpatient (REF) | payer MEDICAID, SELFPAY ==
--- OUTSIDE RECORDS SUMMARY | 2024-08-28 14:59 | XMS_ITS | Encounter Summary ---
Author Organization [employer] Address 75 [facility] 7t [place] [address] Care Team Providers Care Christmas Bell Ringer Name Role Phone Marlene Witt MD Primary Care Provider [phone] Reason for Visit * Reason Comments Med Refill Encounter Details Date Type Department Care Team ([facility] st Contact Info) Description 09/25/2023 Refill [facility] MEDICINE [address] [place], [place] [phone] Marlene Witt MD [address] [place] [address] Social History Tobacco Use Types Packs/Day Years [...] Care Team (Late st Contact Info) Description 08/30/2024 2:00 PM EDT Clinical Support [facility] DIABETES/NUTRITION [address] [place] [address] [place] [address] 10/29/2024 10:15 AM EDT Office Visit [facility] MEDICINE [address] [place] [address] Marlene Witt MD [address] [place] [address] 01/06/2025 2:00 PM EST Office Visit [facility] OPTOMETRY [address] [place] [address] Malu Figueroa, OD [address] [place] [address] 03/13/2025 10:00 AM EST Office Visit [facility] ADULT DENTAL [address] [place] [address] Shelly Becerra [address] [place] [address] documented as of this encounter Visit Diagnoses Not on filedocumented in this encounter Additional Health Concerns Assessment Noted Time PHQ-9 Depression Total Score: 0 04/06/19 24 3:00 PM EST documented as of this encounter Care Teams Christmas Bell Ringer Relationship Specialty Start Date End Date Marlene Witt MD [address] [place] [address] PCP - General Family Medicine 11/11/22 documented as of this encounter
== END 2024-08-28 14:17 | disposition home or self-care (01) ==
LOC: HO.MAMMO 14:16
PROVIDERS: PCP General Practice; Visit Provider General Practice
DX: Z12.31 Encounter for screening mammogram for malignant neoplasm of breast (principal)
CPT/HCPCS: 77063; 77067

== ENCOUNTER → 2024-08-28 15:00 | Outpatient (BNV) | payer MEDICAID, SELFPAY | PROVIDERS: PCP General Practice; Visit Provider Radiology Body Imaging | DX: Z12.31 Encounter for screening mammogram for malignant neoplasm of breast (principal) | CPT/HCPCS: 77063; 77067 ==